=== PATIENT | male | born 1975 | race African-American/Black ===

== ENCOUNTER 2020-07-30 22:15 | Inpatient (IN) | payer BC, SELFPAY ==
[2020-07-30 22:54] LABS: #Eosinphils 0.1 thou/uL (0.0-0.7); #Monocytes 0.5 thou/uL (0.11-0.59); #Neutrophils 4.5 thou/uL (1.40-6.50); %Basophils 0.4 % (0.0-1.0); %Lymphocytes 37.3 % (21.0-51.0); %Monocytes 5.5 % (0.0-10.0); %Neutrophils 55.8 % (42.0-75.0); Mean Corpuscular HGB CONC 32.6 g/dL (32.0-36.0); Mean Corpuscular Hemoglobin 28.6 pg (27.0-31.0); Mean Corpuscular Volume 87.9 fL (78.0-98.0); Mean Platelet Volume 8.1 fL (7.4-10.4); Platelet Count 286 thou/uL (130-400); RBC Distribution Width 11.7 % (11.5-14.5); Red Blood Cell (RBC) Count 4.89 mill/uL (4.70-6.10); White Blood Cell (WBC) Count 8.1 thou/uL (4.8-10.8)
[2020-07-30 23:12] LABS: ALT (SGPT) 170 U/L (8-55); AST (SGOT) 93 U/L (5-34); Albumin 3.9 g/dL (3.5-5.0); Alkaline Phosphatase 175 U/L (40-110); Anion Gap 14 mmol/L (10-20); BUN (Urea Nitrogen) 23 mg/dL (8.9-20.6); Bilirubin, Total 0.9 mg/dL (0.2-1.2); CK (CPK) 129 U/L (30-200); Calc. Creatinine Clearance 0 mL/min (70-130); Calcium 8.7 mg/dL (7.8-10.44); Carbon Dioxide 20 mmol/L (22-29); Chloride 105 mmol/L (98-107); Glucose 350 mg/dL (70-105); Lipase 10 U/L (8-78); Potassium 3.4 mmol/L (3.5-5.1); Protein, Total 5.9 g/dL (6.0-8.3); Sodium 136 mmol/L (136-145)
[2020-07-31] MEDS ORDERED: Aspirin Chewable 81 MG TAB ONE (00:26)
[2020-07-31] MEDS ORDERED: Furosemide 40 MG/4 ML VIAL ONE (00:26)
[2020-07-31] MEDS ORDERED: Ondansetron ODT 4 MG TAB SL PRN (02:00)
[2020-07-31] MEDS ORDERED: Ondansetron PF 4 MG/2 ML Vial IVP PRN (02:00)
[2020-07-31 02:31] LABS: Troponin I 0.031 ng/mL (< 0.028)
[2020-07-31] MEDS ORDERED: Dextrose 50% Abboject 50 ML SYRINGE SLOW IVP PRN (05:17)
[2020-07-31] MEDS ORDERED: Dextrose 5% in Water 1,000 ML IV PRN (05:17)
[2020-07-31 05:28] LABS: Troponin I 0.021 ng/mL (< 0.028)
[2020-07-31] MEDS ORDERED: Potassium Chloride 20 MEQ TAB PO SCH (05:30)
[2020-07-31] MEDS: HumaLOG 300 UNITS/3 ML VIAL SC PRN ×2 (06:18→21:13)
[2020-07-31 06:53] LABS: #Basophils 0.1 thou/uL (0.0-0.2); #Eosinphils 0.1 thou/uL (0.0-0.7); #Lymphocytes 2.4 thou/uL (1.20-3.40); #Monocytes 0.5 thou/uL (0.11-0.59); #Neutrophils 4.3 thou/uL (1.40-6.50); %Basophils 0.7 % (0.0-1.0); %Eosinophils 1.1 % (0.0-10.0); %Lymphocytes 33.2 % (21.0-51.0); %Monocytes 6.6 % (0.0-10.0); %Neutrophils 58.5 % (42.0-75.0); Hemoglobin 13.5 g/dL (14.0-18.0); Mean Corpuscular HGB CONC 32.6 g/dL (32.0-36.0); Mean Corpuscular Hemoglobin 28.5 pg (27.0-31.0); Mean Corpuscular Volume 87.5 fL (78.0-98.0); Mean Platelet Volume 8.1 fL (7.4-10.4); Platelet Count 252 thou/uL (130-400); RBC Distribution Width 11.6 % (11.5-14.5); Red Blood Cell (RBC) Count 4.73 mill/uL (4.70-6.10); White Blood Cell (WBC) Count 7.3 thou/uL (4.8-10.8)
[2020-07-31 07:12] LABS: Anion Gap 14 mmol/L (10-20); BUN (Urea Nitrogen) 19 mg/dL (8.9-20.6); Calc. Creatinine Clearance 98 mL/min (70-130); Calcium 8.5 mg/dL (7.8-10.44); Carbon Dioxide 22 mmol/L (22-29); Chloride 106 mmol/L (98-107); Glucose 401 mg/dL (70-105); Magnesium 1.7 mg/dL (1.6-2.6); Potassium 3.6 mmol/L (3.5-5.1); Sodium 138 mmol/L (136-145)
[2020-07-31] MEDS: Aspirin 325 MG TAB PO SCH (08:35)
[2020-07-31] MEDS: Furosemide 40 MG/4 ML VIAL SLOW IVP SCH ×2 (08:35→08:45)
[2020-07-31] MEDS ORDERED: Furosemide 20 MG/2 ML VIAL SLOW IVP SCH ×3 (09:00→14:00)
[2020-07-31] MEDS ORDERED: Acetaminophen 325 MG TAB PO PRN (09:05)
[2020-07-31 10:03] LABS: Hemoglobin A1c 12.4 % (4.0-6.0)
[2020-07-31] MEDS: Famotidine 20 MG TAB PO SCH (21:12)
[2020-07-31] MEDS: DOBUTamine 500 mg/250 ml 250 ML IVPB SCH (21:13)
[2020-08-01 04:33] LABS: #Basophils 0.1 thou/uL (0.0-0.2); #Eosinphils 0.1 thou/uL (0.0-0.7); #Lymphocytes 2.8 thou/uL (1.20-3.40); #Monocytes 0.5 thou/uL (0.11-0.59); #Neutrophils 3.9 thou/uL (1.40-6.50); %Basophils 0.7 % (0.0-1.0); %Eosinophils 1.2 % (0.0-10.0); %Lymphocytes 38.1 % (21.0-51.0); %Monocytes 6.4 % (0.0-10.0); %Neutrophils 53.6 % (42.0-75.0); Hemoglobin 13.1 g/dL (14.0-18.0); Mean Corpuscular HGB CONC 33.6 g/dL (32.0-36.0); Mean Corpuscular Hemoglobin 29.4 pg (27.0-31.0); Mean Corpuscular Volume 87.7 fL (78.0-98.0); Platelet Count 243 thou/uL (130-400); RBC Distribution Width 11.6 % (11.5-14.5); Red Blood Cell (RBC) Count 4.45 mill/uL (4.70-6.10); White Blood Cell (WBC) Count 7.3 thou/uL (4.8-10.8)
[2020-08-01 04:51] LABS: Anion Gap 11 mmol/L (10-20); BUN (Urea Nitrogen) 17 mg/dL (8.9-20.6); Calc. Creatinine Clearance 116 mL/min (70-130); Calcium 8.5 mg/dL (7.8-10.44); Carbon Dioxide 24 mmol/L (22-29); Chloride 107 mmol/L (98-107); Glucose 217 mg/dL (70-105); Magnesium 1.7 mg/dL (1.6-2.6); Potassium 3.3 mmol/L (3.5-5.1); Sodium 139 mmol/L (136-145)
[2020-08-01] MEDS: Furosemide 20 MG/2 ML VIAL SLOW IVP SCH ×2 (06:25→16:03)
[2020-08-01] MEDS ORDERED: Potassium Chloride 20 MEQ TAB PO SCH (08:15)
[2020-08-01] MEDS: Aspirin 325 MG TAB PO SCH (08:55)
[2020-08-01] MEDS: Famotidine 20 MG TAB PO SCH ×2 (08:55→20:33)
[2020-08-01] MEDS: Enoxaparin Sodium 40 MG/0.4 ML SYRINGE SC SCH (08:56)
[2020-08-01] MEDS ORDERED: Empagliflozin 10 MG TAB PO SCH (09:45)
[2020-08-01] MEDS: HumaLOG 300 UNITS/3 ML VIAL SC PRN ×2 (11:18→20:57)
[2020-08-01] MEDS: DOBUTamine 500 mg/250 ml 250 ML IVPB SCH (17:49)
[2020-08-02 05:04] LABS: #Basophils 0.1 thou/uL (0.0-0.2); #Eosinphils 0.1 thou/uL (0.0-0.7); #Lymphocytes 2.9 thou/uL (1.20-3.40); #Monocytes 0.5 thou/uL (0.11-0.59); #Neutrophils 5.9 thou/uL (1.40-6.50); %Basophils 0.7 % (0.0-1.0); %Eosinophils 1.4 % (0.0-10.0); %Monocytes 5.6 % (0.0-10.0); %Neutrophils 62.3 % (42.0-75.0); Hemoglobin 13.2 g/dL (14.0-18.0); Mean Corpuscular HGB CONC 33.3 g/dL (32.0-36.0); Mean Corpuscular Hemoglobin 29.4 pg (27.0-31.0); Mean Corpuscular Volume 88.2 fL (78.0-98.0); Mean Platelet Volume 8.1 fL (7.4-10.4); Platelet Count 253 thou/uL (130-400); RBC Distribution Width 11.5 % (11.5-14.5); Red Blood Cell (RBC) Count 4.48 mill/uL (4.70-6.10); White Blood Cell (WBC) Count 9.5 thou/uL (4.8-10.8)
[2020-08-02] MEDS: Furosemide 20 MG/2 ML VIAL SLOW IVP SCH ×2 (05:11→15:24)
[2020-08-02] MEDS: Enoxaparin Sodium 40 MG/0.4 ML SYRINGE SC SCH ×2 (05:12→11:57)
[2020-08-02 05:19] LABS: Anion Gap 11 mmol/L (10-20); BUN (Urea Nitrogen) 17 mg/dL (8.9-20.6); Calc. Creatinine Clearance 86 mL/min (70-130); Calcium 8.9 mg/dL (7.8-10.44); Carbon Dioxide 31 mmol/L (22-29); Chloride 104 mmol/L (98-107); Glucose 192 mg/dL (70-105); Magnesium 1.7 mg/dL (1.6-2.6); Potassium 3.5 mmol/L (3.5-5.1); Sodium 142 mmol/L (136-145)
[2020-08-02] MEDS: Famotidine 20 MG TAB PO SCH ×2 (05:36→20:52)
[2020-08-02] MEDS: Aspirin 325 MG TAB PO SCH (06:34)
[2020-08-02] MEDS ORDERED: Empagliflozin 10 MG TAB PO SCH ×2 (09:00→18:17)
[2020-08-02] MEDS ORDERED: Nitroglycerin 100MG/250ML BOT 0 ML ONE (10:36)
[2020-08-02] MEDS ORDERED: Verapamil 5 MG/2 ML VIAL ONE (10:36)
[2020-08-02] MEDS ORDERED: Heparin 10,000 UNITS/ 10 ML VIAL ONE (10:36)
[2020-08-02] MEDS ORDERED: Lidocaine 1% (PF) 30 ML VIAL ONE (10:36)
[2020-08-02] MEDS ORDERED: Midazolam HCl 2 mg/2 ml Vial ONE (10:54)
[2020-08-02] MEDS ORDERED: Fentanyl 100 MCG/2 ML VIAL ONE (10:54)
[2020-08-02] MEDS ORDERED: Acetaminophen/Codeine 30-300mg Tablet PO PRN (11:19)
[2020-08-02] MEDS ORDERED: Sodium Chloride 0.9% 200 ML IV PRN (11:19)
[2020-08-02] MEDS ORDERED: Sodium Chloride 0.9% 250 ML IV SCH (11:30)
[2020-08-02] MEDS ORDERED: Iopamidol 370 76% 100 ML VIAL ONE (12:41)
[2020-08-02] MEDS: DOBUTamine 500 mg/250 ml 250 ML IVPB SCH (17:14)
[2020-08-02] MEDS: HumaLOG 300 UNITS/3 ML VIAL SC PRN (17:34)
[2020-08-02] MEDS ORDERED: DOBUTamine 500 mg/250 ml 250 ML IVPB SCH (18:04)
[2020-08-03] MEDS: Furosemide 20 MG/2 ML VIAL SLOW IVP SCH ×2 (05:23→14:47)
[2020-08-03 05:31] LABS: #Basophils 0.1 thou/uL (0.0-0.2); #Eosinphils 0.1 thou/uL (0.0-0.7); #Lymphocytes 2.5 thou/uL (1.20-3.40); #Monocytes 0.6 thou/uL (0.11-0.59); #Neutrophils 4.9 thou/uL (1.40-6.50); %Basophils 0.7 % (0.0-1.0); %Eosinophils 1.7 % (0.0-10.0); %Lymphocytes 30.4 % (21.0-51.0); %Monocytes 6.9 % (0.0-10.0); %Neutrophils 60.4 % (42.0-75.0); Hemoglobin 13.2 g/dL (14.0-18.0); Mean Corpuscular HGB CONC 32.2 g/dL (32.0-36.0); Mean Corpuscular Hemoglobin 28.6 pg (27.0-31.0); Mean Corpuscular Volume 88.8 fL (78.0-98.0); Mean Platelet Volume 7.7 fL (7.4-10.4); Platelet Count 254 thou/uL (130-400); RBC Distribution Width 11.5 % (11.5-14.5); Red Blood Cell (RBC) Count 4.61 mill/uL (4.70-6.10); White Blood Cell (WBC) Count 8.1 thou/uL (4.8-10.8)
[2020-08-03 05:53] LABS: Anion Gap 15 mmol/L (10-20); BUN (Urea Nitrogen) 15 mg/dL (8.9-20.6); Calc. Creatinine Clearance 106 mL/min (70-130); Calcium 8.8 mg/dL (7.8-10.44); Carbon Dioxide 25 mmol/L (22-29); Chloride 101 mmol/L (98-107); Glucose 183 mg/dL (70-105); Magnesium 1.8 mg/dL (1.6-2.6); Potassium 3.4 mmol/L (3.5-5.1); Sodium 138 mmol/L (136-145)
[2020-08-03] MEDS: HumaLOG 300 UNITS/3 ML VIAL SC PRN ×3 (06:11→18:37)
[2020-08-03] MEDS: Empagliflozin 25 MG TAB PO SCH (09:09)
[2020-08-03] MEDS: Famotidine 20 MG TAB PO SCH ×2 (09:09→20:39)
[2020-08-03] MEDS: Enoxaparin Sodium 40 MG/0.4 ML SYRINGE SC SCH (09:09)
[2020-08-03 15:41] LABS: Amphetamine Not Detected (NotDetected); Barbiturates Screen Not Detected (NotDetected); Benzodiazepine Screen Not Detected (NotDetected); Cocaine Metabolite Screen Not Detected (NotDetected); Medtox Control Line Valid? VALID (VALID); Medtox Reader # READER 1; Methadone Not Detected (NotDetected); Methamphetamine Not Detected (NotDetected); Opiate Screen Not Detected (NotDetected); Oxycodone Screen Not Detected (NotDetected); Phencyclidine (PCP) Not Detected (NotDetected); THC/Cannabinoid Screen Not Detected (NotDetected); Tricyclic Screen Not Detected (NotDetected)
[2020-08-03] MEDS ORDERED: Potassium Chloride 20 MEQ TAB PO SCH (16:15)
[2020-08-03] MEDS: DOBUTamine 500 mg/250 ml 250 ML IVPB SCH (23:34)
[2020-08-04] MEDS: HumaLOG 300 UNITS/3 ML VIAL SC PRN ×4 (06:07→21:23)
[2020-08-04] MEDS: Furosemide 20 MG/2 ML VIAL SLOW IVP SCH ×2 (06:08→14:24)
[2020-08-04 06:18] LABS: Anion Gap 15 mmol/L (10-20); BUN (Urea Nitrogen) 19 mg/dL (8.9-20.6); Calc. Creatinine Clearance 82 mL/min (70-130); Carbon Dioxide 28 mmol/L (22-29); Chloride 102 mmol/L (98-107); Glucose 268 mg/dL (70-105); Magnesium 2.2 mg/dL (1.6-2.6); Potassium 3.9 mmol/L (3.5-5.1); Sodium 141 mmol/L (136-145)
[2020-08-04] MEDS: metFORMIN XR 500 MG TAB PO SCH (08:44)
[2020-08-04] MEDS: Famotidine 20 MG TAB PO SCH ×2 (08:44→21:21)
[2020-08-04] MEDS: Enoxaparin Sodium 40 MG/0.4 ML SYRINGE SC SCH (08:44)
[2020-08-04] MEDS: Senokot S 8.6-50 MG TAB PO SCH ×2 (08:45→21:21)
[2020-08-04] MEDS: Empagliflozin 25 MG TAB PO SCH (08:49)
[2020-08-04] MEDS: DOBUTamine 500 mg/250 ml 250 ML IVPB SCH (17:07)
[2020-08-05 05:21] LABS: Anion Gap 14 mmol/L (10-20); BUN (Urea Nitrogen) 22 mg/dL (8.9-20.6); Calc. Creatinine Clearance 74 mL/min (70-130); Calcium 8.9 mg/dL (7.8-10.44); Carbon Dioxide 28 mmol/L (22-29); Chloride 102 mmol/L (98-107); Glucose 263 mg/dL (70-105); Magnesium 2.3 mg/dL (1.6-2.6); Sodium 140 mmol/L (136-145)
[2020-08-05] MEDS: HumaLOG 300 UNITS/3 ML VIAL SC PRN ×3 (05:55→17:51)
[2020-08-05] MEDS: Furosemide 20 MG/2 ML VIAL SLOW IVP SCH ×2 (05:55→14:33)
[2020-08-05] MEDS: DOBUTamine 500 mg/250 ml 250 ML IVPB SCH ×2 (05:56→21:35)
[2020-08-05] MEDS: Empagliflozin 25 MG TAB PO SCH (08:31)
[2020-08-05] MEDS: Senokot S 8.6-50 MG TAB PO SCH ×2 (08:31→21:36)
[2020-08-05] MEDS: Enoxaparin Sodium 40 MG/0.4 ML SYRINGE SC SCH (08:31)
[2020-08-05] MEDS: Famotidine 20 MG TAB PO SCH ×2 (08:31→21:36)
[2020-08-05] MEDS: metFORMIN XR 500 MG TAB PO SCH (08:31)
[2020-08-06 05:38] LABS: Anion Gap 16 mmol/L (10-20); BUN (Urea Nitrogen) 23 mg/dL (8.9-20.6); Calc. Creatinine Clearance 77 mL/min (70-130); Calcium 9.4 mg/dL (7.8-10.44); Carbon Dioxide 25 mmol/L (22-29); Chloride 99 mmol/L (98-107); Glucose 159 mg/dL (70-105); Magnesium 2.2 mg/dL (1.6-2.6); Sodium 136 mmol/L (136-145)
[2020-08-06] MEDS: Furosemide 20 MG/2 ML VIAL SLOW IVP SCH (06:15)
[2020-08-06] MEDS: HumaLOG 300 UNITS/3 ML VIAL SC PRN ×3 (06:23→16:48)
[2020-08-06] MEDS: Famotidine 20 MG TAB PO SCH ×2 (08:02→20:24)
[2020-08-06] MEDS: Enoxaparin Sodium 40 MG/0.4 ML SYRINGE SC SCH (08:03)
[2020-08-06] MEDS: metFORMIN XR 500 MG TAB PO SCH (08:03)
[2020-08-06] MEDS: Empagliflozin 25 MG TAB PO SCH (08:05)
[2020-08-06] MEDS: Senokot S 8.6-50 MG TAB PO SCH ×2 (08:05→20:24)
[2020-08-06] MEDS ORDERED: DOBUTamine 500 mg/250 ml 250 ML IVPB SCH (08:28)
[2020-08-06] MEDS: Furosemide 20 MG TAB PO SCH (09:33)
[2020-08-07] MEDS: HumaLOG 300 UNITS/3 ML VIAL SC PRN ×3 (06:13→17:40)
[2020-08-07] MEDS: Furosemide 20 MG TAB PO SCH (08:08)
[2020-08-07] MEDS: Senokot S 8.6-50 MG TAB PO SCH ×2 (08:09→19:52)
[2020-08-07] MEDS: Famotidine 20 MG TAB PO SCH ×2 (08:10→19:52)
[2020-08-07] MEDS: metFORMIN XR 500 MG TAB PO SCH (08:10)
[2020-08-07] MEDS: Empagliflozin 25 MG TAB PO SCH (08:10)
[2020-08-07] MEDS: Enoxaparin Sodium 40 MG/0.4 ML SYRINGE SC SCH (08:10)
[2020-08-08] MEDS: DOBUTamine 500 mg/250 ml 250 ML IVPB SCH (00:21)
[2020-08-08] MEDS: HumaLOG 300 UNITS/3 ML VIAL SC PRN ×4 (06:13→20:50)
[2020-08-08] MEDS: Senokot S 8.6-50 MG TAB PO SCH ×2 (08:47→20:46)
[2020-08-08] MEDS: Famotidine 20 MG TAB PO SCH ×2 (08:47→20:46)
[2020-08-08] MEDS: Enoxaparin Sodium 40 MG/0.4 ML SYRINGE SC SCH (08:47)
[2020-08-08] MEDS: metFORMIN XR 500 MG TAB PO SCH ×2 (08:47→20:46)
[2020-08-08] MEDS: Furosemide 20 MG TAB PO SCH (08:47)
[2020-08-08] MEDS: Empagliflozin 25 MG TAB PO SCH (08:48)
[2020-08-08] MEDS ORDERED: Furosemide 20 MG/2 ML VIAL SLOW IVP SCH (09:45)
[2020-08-08] MEDS ORDERED: Sodium Chloride 0.9% 250 ML IV SCH (11:15)
[2020-08-08 15:03] LABS: Anion Gap 15 mmol/L (10-20); BUN (Urea Nitrogen) 23 mg/dL (8.9-20.6); Calc. Creatinine Clearance 75 mL/min (70-130); Calcium 9.5 mg/dL (7.8-10.44); Carbon Dioxide 22 mmol/L (22-29); Chloride 102 mmol/L (98-107); Glucose 171 mg/dL (70-105); Potassium 4.2 mmol/L (3.5-5.1); Sodium 135 mmol/L (136-145)
[2020-08-09] MEDS: DOBUTamine 500 mg/250 ml 250 ML IVPB SCH (01:34)
[2020-08-09 04:46] LABS: Anion Gap 15 mmol/L (10-20); BUN (Urea Nitrogen) 24 mg/dL (8.9-20.6); Calc. Creatinine Clearance 82 mL/min (70-130); Carbon Dioxide 24 mmol/L (22-29); Chloride 103 mmol/L (98-107); Glucose 164 mg/dL (70-105); Sodium 138 mmol/L (136-145)
[2020-08-09] MEDS: HumaLOG 300 UNITS/3 ML VIAL SC PRN ×4 (06:00→20:58)
[2020-08-09] MEDS: Empagliflozin 25 MG TAB PO SCH (09:41)
[2020-08-09] MEDS: Senokot S 8.6-50 MG TAB PO SCH ×2 (09:41→20:58)
[2020-08-09] MEDS: Furosemide 20 MG TAB PO SCH (09:41)
[2020-08-09] MEDS: Famotidine 20 MG TAB PO SCH ×2 (09:42→20:58)
[2020-08-09] MEDS: Enoxaparin Sodium 40 MG/0.4 ML SYRINGE SC SCH (09:42)
[2020-08-09] MEDS: metFORMIN XR 500 MG TAB PO SCH ×2 (09:42→20:58)
[2020-08-10 04:45] LABS: Anion Gap 14 mmol/L (10-20); BUN (Urea Nitrogen) 29 mg/dL (8.9-20.6); Calc. Creatinine Clearance 77 mL/min (70-130); Calcium 9.1 mg/dL (7.8-10.44); Carbon Dioxide 22 mmol/L (22-29); Chloride 104 mmol/L (98-107); Glucose 198 mg/dL (70-105); Magnesium 2.3 mg/dL (1.6-2.6); Potassium 3.9 mmol/L (3.5-5.1); Sodium 136 mmol/L (136-145)
[2020-08-10] MEDS: HumaLOG 300 UNITS/3 ML VIAL SC PRN ×2 (06:02→16:38)
[2020-08-10] MEDS: metFORMIN XR 500 MG TAB PO SCH ×2 (09:01→21:54)
[2020-08-10] MEDS: Empagliflozin 25 MG TAB PO SCH (09:01)
[2020-08-10] MEDS: Enoxaparin Sodium 40 MG/0.4 ML SYRINGE SC SCH (09:02)
[2020-08-10] MEDS: Famotidine 20 MG TAB PO SCH ×2 (09:02→21:54)
[2020-08-10] MEDS: Senokot S 8.6-50 MG TAB PO SCH ×2 (09:02→21:54)
[2020-08-10] MEDS: Furosemide 20 MG TAB PO SCH (09:10)
[2020-08-11 04:58] LABS: ALT (SGPT) 23 U/L (8-55); AST (SGOT) 14 U/L (5-34); Albumin 3.7 g/dL (3.5-5.0); Alkaline Phosphatase 140 U/L (40-110); Anion Gap 16 mmol/L (10-20); BUN (Urea Nitrogen) 26 mg/dL (8.9-20.6); Bilirubin, Total 0.8 mg/dL (0.2-1.2); Calc. Creatinine Clearance 74 mL/min (70-130); Calcium 9.4 mg/dL (7.8-10.44); Carbon Dioxide 19 mmol/L (22-29); Chloride 105 mmol/L (98-107); Globulin 2.6 g/dL (2.4-3.5); Glucose 211 mg/dL (70-105); Magnesium 2.1 mg/dL (1.6-2.6); Protein, Total 6.3 g/dL (6.0-8.3); Sodium 136 mmol/L (136-145)
[2020-08-11] MEDS: HumaLOG 300 UNITS/3 ML VIAL SC PRN ×3 (06:41→20:52)
[2020-08-11] MEDS: Furosemide 20 MG TAB PO SCH (09:32)
[2020-08-11] MEDS: Empagliflozin 25 MG TAB PO SCH (09:32)
[2020-08-11] MEDS: metFORMIN XR 500 MG TAB PO SCH ×2 (09:32→21:24)
[2020-08-11] MEDS: Famotidine 20 MG TAB PO SCH ×2 (09:32→20:51)
[2020-08-11] MEDS: Senokot S 8.6-50 MG TAB PO SCH ×2 (09:33→20:51)
[2020-08-11] MEDS: Enoxaparin Sodium 40 MG/0.4 ML SYRINGE SC SCH (09:33)
[2020-08-12] MEDS: HumaLOG 300 UNITS/3 ML VIAL SC PRN ×4 (06:21→20:37)
[2020-08-12] MEDS: Senokot S 8.6-50 MG TAB PO SCH ×2 (09:45→20:36)
[2020-08-12] MEDS: Enoxaparin Sodium 40 MG/0.4 ML SYRINGE SC SCH (09:46)
[2020-08-12] MEDS: Furosemide 20 MG TAB PO SCH (09:46)
[2020-08-12] MEDS: Famotidine 20 MG TAB PO SCH ×2 (09:46→20:36)
[2020-08-12] MEDS: metFORMIN XR 500 MG TAB PO SCH ×2 (09:46→20:36)
[2020-08-12] MEDS: Empagliflozin 25 MG TAB PO SCH (09:47)
[2020-08-12] MEDS ORDERED: Furosemide 40 MG/4 ML VIAL SLOW IVP SCH (18:15)
[2020-08-13] MEDS: HumaLOG 300 UNITS/3 ML VIAL SC PRN ×2 (06:12→17:24)
[2020-08-13] MEDS: Enoxaparin Sodium 40 MG/0.4 ML SYRINGE SC SCH (08:43)
[2020-08-13] MEDS: Valsartan 80 MG TAB PO SCH (08:43)
[2020-08-13] MEDS: Furosemide 40 MG/4 ML VIAL SLOW IVP SCH (08:44)
[2020-08-13] MEDS: Senokot S 8.6-50 MG TAB PO SCH ×2 (08:44→21:16)
[2020-08-13] MEDS: Empagliflozin 25 MG TAB PO SCH (08:44)
[2020-08-13] MEDS: metFORMIN XR 500 MG TAB PO SCH ×2 (08:44→21:16)
[2020-08-13] MEDS: Famotidine 20 MG TAB PO SCH ×2 (08:44→21:16)
[2020-08-14] MEDS: Furosemide 40 MG/4 ML VIAL SLOW IVP SCH (08:22)
[2020-08-14] MEDS: Valsartan 80 MG TAB PO SCH (08:22)
[2020-08-14] MEDS: metFORMIN XR 500 MG TAB PO SCH ×2 (08:22→21:41)
[2020-08-14] MEDS: Empagliflozin 25 MG TAB PO SCH (08:22)
[2020-08-14] MEDS: Enoxaparin Sodium 40 MG/0.4 ML SYRINGE SC SCH (08:22)
[2020-08-14] MEDS: Senokot S 8.6-50 MG TAB PO SCH ×2 (08:23→21:41)
[2020-08-14] MEDS: Famotidine 20 MG TAB PO SCH ×2 (08:23→21:41)
[2020-08-14] MEDS ORDERED: Spironolactone 25 MG TAB PO SCH ×2 (09:03→09:15)
[2020-08-14] MEDS: Digoxin 0.5 MG/2 ML AMP SLOW IVP SCH ×2 (09:54→13:50)
[2020-08-14] MEDS: HumaLOG 300 UNITS/3 ML VIAL SC PRN (11:30)
[2020-08-14] MEDS ORDERED: Digoxin 0.25 MG TAB PO SCH (14:00)
[2020-08-15] MEDS: Spironolactone 25 MG TAB PO SCH (08:42)
[2020-08-15] MEDS: Valsartan 80 MG TAB PO SCH (08:42)
[2020-08-15] MEDS: Furosemide 40 MG/4 ML VIAL SLOW IVP SCH (08:42)
[2020-08-15] MEDS: Digoxin 0.25 MG TAB PO SCH (08:43)
[2020-08-15] MEDS: Empagliflozin 25 MG TAB PO SCH (08:43)
[2020-08-15] MEDS: metFORMIN XR 500 MG TAB PO SCH ×2 (08:43→20:27)
[2020-08-15] MEDS: Enoxaparin Sodium 40 MG/0.4 ML SYRINGE SC SCH (08:43)
[2020-08-15] MEDS: Famotidine 20 MG TAB PO SCH ×2 (08:43→20:27)
[2020-08-15] MEDS: Senokot S 8.6-50 MG TAB PO SCH ×2 (08:43→20:28)
[2020-08-15] MEDS ORDERED: Carvedilol 3.125 MG TAB PO SCH (09:15)
[2020-08-15] MEDS: HumaLOG 300 UNITS/3 ML VIAL SC PRN ×2 (11:53→20:52)
[2020-08-15 13:30] LABS: #Basophils 0.1 thou/uL (0.0-0.2); #Eosinphils 0.2 thou/uL (0.0-0.7); #Lymphocytes 2.3 thou/uL (1.20-3.40); #Monocytes 0.5 thou/uL (0.11-0.59); #Neutrophils 6.9 thou/uL (1.40-6.50); %Basophils 0.5 % (0.0-1.0); %Eosinophils 2.5 % (0.0-10.0); %Lymphocytes 22.6 % (21.0-51.0); %Monocytes 5.5 % (0.0-10.0); %Neutrophils 68.9 % (42.0-75.0); Hemoglobin 15.2 g/dL (14.0-18.0); Mean Corpuscular HGB CONC 33.8 g/dL (32.0-36.0); Mean Corpuscular Hemoglobin 29.2 pg (27.0-31.0); Mean Corpuscular Volume 86.5 fL (78.0-98.0); Mean Platelet Volume 7.3 fL (7.4-10.4); Platelet Count 438 thou/uL (130-400); RBC Distribution Width 11.2 % (11.5-14.5); Red Blood Cell (RBC) Count 5.19 mill/uL (4.70-6.10)
[2020-08-15 13:50] LABS: Anion Gap 15 mmol/L (10-20); BUN (Urea Nitrogen) 19 mg/dL (8.9-20.6); Calc. Creatinine Clearance 76 mL/min (70-130); Calcium 9.2 mg/dL (7.8-10.44); Carbon Dioxide 23 mmol/L (22-29); Chloride 104 mmol/L (98-107); Glucose 148 mg/dL (70-105); Potassium 4.1 mmol/L (3.5-5.1); Sodium 138 mmol/L (136-145)
[2020-08-15] MEDS: Carvedilol 3.125 MG TAB PO SCH (16:38)
[2020-08-16 05:34] LABS: Anion Gap 13 mmol/L (10-20); BUN (Urea Nitrogen) 24 mg/dL (8.9-20.6); Calc. Creatinine Clearance 80 mL/min (70-130); Calcium 9.1 mg/dL (7.8-10.44); Carbon Dioxide 25 mmol/L (22-29); Chloride 105 mmol/L (98-107); Glucose 196 mg/dL (70-105); Potassium 3.5 mmol/L (3.5-5.1); Sodium 139 mmol/L (136-145)
[2020-08-16] MEDS: Enoxaparin Sodium 40 MG/0.4 ML SYRINGE SC SCH (09:23)
[2020-08-16] MEDS: Senokot S 8.6-50 MG TAB PO SCH ×2 (09:23→20:06)
[2020-08-16] MEDS: Valsartan 80 MG TAB PO SCH (09:23)
[2020-08-16] MEDS: Spironolactone 25 MG TAB PO SCH (09:24)
[2020-08-16] MEDS: Famotidine 20 MG TAB PO SCH ×2 (09:24→20:05)
[2020-08-16] MEDS: metFORMIN XR 500 MG TAB PO SCH ×2 (09:24→20:05)
[2020-08-16] MEDS: Carvedilol 3.125 MG TAB PO SCH ×2 (09:24→16:41)
[2020-08-16] MEDS: Empagliflozin 25 MG TAB PO SCH (09:24)
[2020-08-16] MEDS: Digoxin 0.25 MG TAB PO SCH (09:24)
[2020-08-16] MEDS: HumaLOG 300 UNITS/3 ML VIAL SC PRN ×2 (12:28→18:09)
[2020-08-16] MEDS ORDERED: Valsartan 80 MG TAB PO SCH (21:00)
[2020-08-17] MEDS: HumaLOG 300 UNITS/3 ML VIAL SC PRN ×3 (05:46→16:56)
[2020-08-17] MEDS: metFORMIN XR 500 MG TAB PO SCH ×2 (08:23→21:05)
[2020-08-17] MEDS: Senokot S 8.6-50 MG TAB PO SCH ×2 (08:23→21:05)
[2020-08-17] MEDS: Famotidine 20 MG TAB PO SCH ×2 (08:23→21:05)
[2020-08-17] MEDS: Spironolactone 25 MG TAB PO SCH (08:23)
[2020-08-17] MEDS: Carvedilol 3.125 MG TAB PO SCH ×2 (08:23→16:44)
[2020-08-17] MEDS: Digoxin 0.25 MG TAB PO SCH (08:23)
[2020-08-17] MEDS: Enoxaparin Sodium 40 MG/0.4 ML SYRINGE SC SCH (08:24)
[2020-08-17] MEDS: Empagliflozin 25 MG TAB PO SCH (08:28)
[2020-08-18] MEDS: HumaLOG 300 UNITS/3 ML VIAL SC PRN ×2 (05:43→14:18)
[2020-08-18] MEDS: Enoxaparin Sodium 40 MG/0.4 ML SYRINGE SC SCH (09:03)
[2020-08-18] MEDS: Digoxin 0.25 MG TAB PO SCH (09:04)
[2020-08-18] MEDS: Famotidine 20 MG TAB PO SCH ×2 (09:04→21:35)
[2020-08-18] MEDS: Empagliflozin 25 MG TAB PO SCH (09:04)
[2020-08-18] MEDS: Carvedilol 3.125 MG TAB PO SCH ×2 (09:04→17:18)
[2020-08-18] MEDS: Furosemide 40 MG TAB PO SCH ×2 (09:04→14:18)
[2020-08-18] MEDS: Spironolactone 25 MG TAB PO SCH (09:04)
[2020-08-18] MEDS: Senokot S 8.6-50 MG TAB PO SCH ×2 (09:04→21:35)
[2020-08-18] MEDS: metFORMIN XR 500 MG TAB PO SCH ×2 (09:05→21:35)
[2020-08-18 12:56] VITALS: BMI 20.6
[2020-08-18 15:39] LABS: CRP (Inflammatory) Less than 0.50 mg/dL (= or < 0.5); Uric Acid 4.8 mg/dL (3.5-7.2)
[2020-08-19] MEDS: HumaLOG 300 UNITS/3 ML VIAL SC PRN ×2 (06:13→11:22)
[2020-08-19] MEDS: metFORMIN XR 500 MG TAB PO SCH ×2 (08:30→20:12)
[2020-08-19] MEDS: Enoxaparin Sodium 40 MG/0.4 ML SYRINGE SC SCH (08:30)
[2020-08-19] MEDS: Famotidine 20 MG TAB PO SCH ×2 (08:30→20:12)
[2020-08-19] MEDS: Senokot S 8.6-50 MG TAB PO SCH ×2 (08:30→20:12)
[2020-08-19] MEDS: Spironolactone 25 MG TAB PO SCH (08:31)
[2020-08-19] MEDS: Carvedilol 3.125 MG TAB PO SCH ×2 (08:31→17:34)
[2020-08-19] MEDS: Empagliflozin 25 MG TAB PO SCH (08:32)
[2020-08-19] MEDS: Digoxin 0.25 MG TAB PO SCH (08:32)
[2020-08-19] MEDS: Furosemide 40 MG TAB PO SCH ×2 (08:32→15:16)
[2020-08-19] MEDS ORDERED: Furosemide 40 MG TAB PO SCH (15:30)
[2020-08-19] MEDS ORDERED: Furosemide 20 MG TAB PO SCH (15:30)
[2020-08-20] MEDS: HumaLOG 300 UNITS/3 ML VIAL SC PRN ×2 (06:08→11:41)
[2020-08-20] MEDS ORDERED: Spironolactone 25 MG TAB PO SCH (08:00)
[2020-08-20] MEDS: Digoxin 0.25 MG TAB PO SCH (08:28)
[2020-08-20] MEDS: Senokot S 8.6-50 MG TAB PO SCH (08:28)
[2020-08-20] MEDS: Carvedilol 3.125 MG TAB PO SCH (08:28)
[2020-08-20] MEDS: Enoxaparin Sodium 40 MG/0.4 ML SYRINGE SC SCH (08:28)
[2020-08-20] MEDS: metFORMIN XR 500 MG TAB PO SCH (08:29)
[2020-08-20] MEDS: Famotidine 20 MG TAB PO SCH (08:29)
[2020-08-20] MEDS: Empagliflozin 25 MG TAB PO SCH (08:29)
[2020-08-20] MEDS ORDERED: Furosemide 20 MG TAB PO SCH (09:00)
[2020-08-20] MEDS: Furosemide 40 MG TAB PO SCH ×2 (10:15→13:24)
[2020-08-20 16:10] VITALS: BP 97/60; TEMP 98.4
== END 2020-08-20 17:36 | disposition home or self-care (01) | DRG 286 ==
LOC: ERS 22:15 → 2NO 07-31 00:26
PROVIDERS: ADMIT Student in an Organized Health Care Education/Training Program; ATTEND Internal Medicine
PROC: B2111ZZ Fluoroscopy of Multiple Coronary Arteries using Low Osmolar Contrast (ICD-10-PCS; principal; 2020-08-02)
DX: I42.0 Dilated cardiomyopathy (principal); I50.23 Acute on chronic systolic (congestive) heart failure; Z20.822 Contact with and (suspected) exposure to COVID-19; E11.65 Type 2 diabetes mellitus with hyperglycemia; R77.8 Other specified abnormalities of plasma proteins; I42.8 Other cardiomyopathies; R00.0 Tachycardia, unspecified; I95.2 Hypotension due to drugs; T44.5X5A Adverse effect of predominantly beta-adrenoreceptor agonists, initial encounter; Z98.890 Other specified postprocedural states
CPT/HCPCS: 36415; 36416; 71045; 71275; 76942; 80048; 80053; 80306; 82550; 83036; 83690; 83735; 83880; 84443; 84484; 84550; 85025; 85379; 85652; 86140; 93005; 93010; 93306; 93454; 93798; 94760; 96374; 99152; 99153; J1160; J1250; J1644; J1650; J1815; J1940; J2001; J2250; J3010; Q9967

== ENCOUNTER 2020-12-22 13:20 | Outpatient (CLI) | payer SELFPAY ==
[2020-12-22 14:58] LABS: Hemoglobin 15.8 g/dL (13.5-17.5); Mean Corpuscular HGB CONC 33.1 g/dL (32.0-36.0); Mean Corpuscular Hemoglobin 29.1 pg (27.0-33.0); Mean Corpuscular Volume 87.8 fl (81.2-95.1); Platelet Count 331 10x3/uL (150-450); RBC Distribution Width 11.7 % (11.5-14.5); Red Blood Cell (RBC) Count 5.43 10x6/uL (4.32-5.72); White Blood Cell (WBC) Count 7.5 10x3/uL (3.5-10.5)
[2020-12-22 15:45] LABS: INR-International Normal Ratio 1.5; PTT 34.5 sec (22.0-33.0); Prothrombin Time 16.1 sec (9.5-12.1)
[2020-12-22 15:49] LABS: Anion Gap 17 mmol/L (10-20); BUN (Urea Nitrogen) 25 mg/dL (8.9-20.6); Calc. Creatinine Clearance 0 mL/min (70-130); Calcium 10.7 mg/dL (7.8-10.44); Carbon Dioxide 23 mmol/L (22-29); Chloride 103 mmol/L (98-107); Glucose 168 mg/dL (70-105); Potassium 4.4 mmol/L (3.5-5.1); Sodium 139 mmol/L (136-145)
[2020-12-23 12:08] LABS: SARS-CoV-2 PCR by NAA Not Detected (NotDetected)
== END 2020-12-22 13:21 | disposition home or self-care (01) ==
LOC: LABBT 13:20
PROVIDERS: ATTEND Internal Medicine Cardiovascular Disease
DX: Z01.812 Encounter for preprocedural laboratory examination (principal); I51.9 Heart disease, unspecified; Z79.01 Long term (current) use of anticoagulants; Z20.822 Contact with and (suspected) exposure to COVID-19
CPT/HCPCS: 80048; 85027; 85610; 85730; U0003; U0005

== ENCOUNTER 2020-12-27 11:06 | Day surgery (SDC) | payer OTHER ==
[2020-12-23 12:12] VITALS: BMI 19.6
[2020-12-27] MEDS ORDERED: Gentamicin 80 MG/2 ML VIAL ONE ×2 (12:13→14:49)
[2020-12-27] MEDS ORDERED: CEFAZOLIN 1 GM VIAL ONE ×2 (12:13→14:49)
[2020-12-27] MEDS ORDERED: Lidocaine 1% (PF) 30 ML VIAL ONE (12:13)
[2020-12-27] MEDS ORDERED: Fentanyl 100 MCG/2 ML VIAL ONE ×2 (14:10→15:29)
[2020-12-27] MEDS ORDERED: Midazolam HCl 2 mg/2 ml Vial ONE (14:10)
[2020-12-27] MEDS ORDERED: PHENYLEPHRINE-NS 100 MCG/ML 10 ML SYRINGE ONE (14:14)
[2020-12-27] MEDS ORDERED: Lidocaine 1% PF 5 ML VIAL ONE (14:14)
[2020-12-27] MEDS ORDERED: PROPOFOL 20 ML ONE (14:17)
[2020-12-27] MEDS ORDERED: HYDROcodone/Acetaminophen 5/325 mg Tablet ONE (17:55)
[2020-12-27] MEDS ORDERED: Acetaminophen/Codeine 30-300mg Tablet ONE ×2 (17:58→19:12)
== END 2020-12-27 19:30 | disposition home or self-care (01) ==
LOC: SDC 11:06
PROVIDERS: ATTEND Internal Medicine Cardiovascular Disease
PROC: 02HK3KZ Insertion of Defibrillator Lead into Right Ventricle, Percutaneous Approach (ICD-10-PCS; principal; 2020-12-27)
PROC: 0JH608Z Insertion of Defibrillator Generator into Chest Subcutaneous Tissue and Fascia, Open Approach (ICD-10-PCS; principal; 2020-12-27)
DX: I50.22 Chronic systolic (congestive) heart failure (principal); I42.8 Other cardiomyopathies; R00.0 Tachycardia, unspecified; E11.9 Type 2 diabetes mellitus without complications; Z79.84 Long term (current) use of oral hypoglycemic drugs; Z79.899 Other long term (current) drug therapy
CPT/HCPCS: 33249; 71045; 76942; C1777; C1786; J0690; J1580; J2001; J2250; J2704; J3010

== ENCOUNTER 2021-09-15 18:36 | Inpatient (IN) | payer OTHER, SELFPAY ==
[~2021-09-15 18:36] MED LIST: Iopamidol-370 76% 500 ML 1 ML ONE
[2021-09-15 19:13] LABS: #Lymphocytes 2.8 thou/uL (1.20-3.40); #Monocytes 0.4 thou/uL (0.11-0.59); #Neutrophils 6.7 thou/uL (1.40-6.50); %Basophils 0.4 % (0.0-1.0); %Eosinophils 0.5 % (0.0-10.0); %Lymphocytes 28.2 % (21.0-51.0); Hemoglobin 14.2 g/dL (14.0-18.0); Mean Corpuscular Hemoglobin 28.7 pg (27.0-31.0); Mean Platelet Volume 8.7 fL (7.4-10.4); Platelet Count 218 thou/uL (130-400); RBC Distribution Width 13.6 % (11.5-14.5); Red Blood Cell (RBC) Count 4.96 mill/uL (4.70-6.10)
[2021-09-15] MEDS ORDERED: Furosemide 40 MG/4 ML VIAL ONE (19:21)
[2021-09-15 19:36] LABS: ALT (SGPT) 26 U/L (8-55); AST (SGOT) 26 U/L (5-34); Alkaline Phosphatase 166 U/L (40-110); Anion Gap 17 mmol/L (10-20); BUN (Urea Nitrogen) 28 mg/dL (8.9-20.6); Bilirubin, Total 2.6 mg/dL (0.2-1.2); Calc. Creatinine Clearance 0 mL/min (70-130); Calcium 8.8 mg/dL (7.8-10.44); Carbon Dioxide 21 mmol/L (22-29); Chloride 101 mmol/L (98-107); Globulin 2.3 g/dL (2.4-3.5); Glucose 336 mg/dL (70-105); Potassium 3.7 mmol/L (3.5-5.1); Protein, Total 6.3 g/dL (6.0-8.3); Sodium 135 mmol/L (136-145)
[2021-09-16] MEDS ORDERED: Ondansetron PF 4 MG/2 ML Vial IVP PRN (00:01)
[2021-09-16] MEDS ORDERED: Acetaminophen 325 MG TAB PO PRN (00:01)
[2021-09-16] MEDS ORDERED: Dextrose 50% Abboject 50 ML SYRINGE SLOW IVP PRN (00:04)
[2021-09-16] MEDS ORDERED: Dextrose 5% in Water 1,000 ML IV PRN (00:04)
[2021-09-16 02:55] LABS: SARS-CoV-2 NAA Rapid Test Not Detected (NotDetected)
[2021-09-16 03:04] LABS: Troponin I 0.025 ng/mL (< 0.028)
[2021-09-16] MEDS ORDERED: Furosemide 40 MG/4 ML VIAL ONE ×2 (05:34→06:28)
[2021-09-16 05:49] LABS: #Lymphocytes 2.8 thou/uL (1.20-3.40); #Monocytes 0.5 thou/uL (0.11-0.59); #Neutrophils 6.2 thou/uL (1.40-6.50); %Basophils 0.5 % (0.0-1.0); %Eosinophils 0.4 % (0.0-10.0); %Lymphocytes 29.5 % (21.0-51.0); %Monocytes 4.9 % (0.0-10.0); %Neutrophils 64.7 % (42.0-75.0); Mean Corpuscular HGB CONC 31.5 g/dL (32.0-36.0); Mean Corpuscular Hemoglobin 28.7 pg (27.0-31.0); Mean Corpuscular Volume 90.9 fL (78.0-98.0); Mean Platelet Volume 9.3 fL (7.4-10.4); Platelet Count 193 thou/uL (130-400); RBC Distribution Width 13.8 % (11.5-14.5); Red Blood Cell (RBC) Count 5.24 mill/uL (4.70-6.10); White Blood Cell (WBC) Count 9.5 thou/uL (4.8-10.8)
[2021-09-16] MEDS: Furosemide 40 MG/4 ML VIAL SLOW IVP SCH ×2 (05:49→14:23)
[2021-09-16 06:00] LABS: Anion Gap 16 mmol/L (10-20); BUN (Urea Nitrogen) 29 mg/dL (8.9-20.6); Calc. Creatinine Clearance 0 mL/min (70-130); Calcium 8.8 mg/dL (7.8-10.44); Carbon Dioxide 22 mmol/L (22-29); Chloride 99 mmol/L (98-107); Glucose 271 mg/dL (70-105); Potassium 3.4 mmol/L (3.5-5.1); Sodium 134 mmol/L (136-145)
[2021-09-16 06:02] LABS: ALT (SGPT) 36 U/L (8-55); AST (SGOT) 34 U/L (5-34); Alkaline Phosphatase 175 U/L (40-110); Bilirubin, Total 2.2 mg/dL (0.2-1.2); Protein, Total 6.6 g/dL (6.0-8.3)
[2021-09-16] MEDS ORDERED: Ondansetron PF 4 MG/2 ML Vial ONE (06:59)
[2021-09-16 07:09] LABS: Magnesium 1.4 mg/dL (1.6-2.6)
[2021-09-16] MEDS ORDERED: Potassium Chloride 20 MEQ TAB PO SCH (07:15)
[2021-09-16] MEDS ORDERED: Potassium Chloride 20 MEQ TAB ONE (07:32)
[2021-09-16] MEDS ORDERED: HumaLOG 300 UNITS/3 ML VIAL ONE ×2 (07:42→07:43)
[2021-09-16] MEDS: HumaLOG 300 UNITS/3 ML VIAL SC PRN ×2 (07:50→21:16)
[2021-09-16] MEDS ORDERED: Magnesium 2 GM/50 ML(in water) 2 GM in Premix Bag 1 BAG IVPB SCH (08:00)
[2021-09-16] MEDS ORDERED: DOBUTamine 500 mg/250 ml 250 ML IVPB SCH (08:00)
[2021-09-16] MEDS: Heparin 5,000 UNITS/ML VIAL SC SCH ×2 (09:43→21:14)
[2021-09-16] MEDS ORDERED: Electrolyte Replacement Protocol 1 EACH FS PRN (10:30)
[2021-09-16 10:51] VITALS: BMI 24.6
[2021-09-16] MEDS: DOBUTamine 500 mg/250 ml 250 ML IVPB SCH (11:17)
[2021-09-16] MEDS ORDERED: Furosemide 40 MG/4 ML VIAL SLOW IVP SCH (14:15)
[2021-09-16] MEDS: Carvedilol 3.125 MG TAB PO SCH (17:46)
[2021-09-16] MEDS ORDERED: Furosemide 100 MG/10 ML VIAL SLOW IVP SCH (22:00)
[2021-09-17 04:36] LABS: #Eosinphils 0.1 thou/uL (0.0-0.7); #Lymphocytes 2.2 thou/uL (1.20-3.40); #Monocytes 0.5 thou/uL (0.11-0.59); #Neutrophils 4.9 thou/uL (1.40-6.50); %Basophils 0.5 % (0.0-1.0); %Eosinophils 1.1 % (0.0-10.0); %Monocytes 5.9 % (0.0-10.0); %Neutrophils 63.6 % (42.0-75.0); Hemoglobin 13.7 g/dL (14.0-18.0); Mean Corpuscular HGB CONC 32.2 g/dL (32.0-36.0); Mean Corpuscular Hemoglobin 29.3 pg (27.0-31.0); Mean Platelet Volume 10.3 fL (7.4-10.4); Platelet Count 147 thou/uL (130-400); RBC Distribution Width 13.8 % (11.5-14.5); Red Blood Cell (RBC) Count 4.68 mill/uL (4.70-6.10); White Blood Cell (WBC) Count 7.7 thou/uL (4.8-10.8)
[2021-09-17 04:55] LABS: Phosphorus 3.7 mg/dL (2.3-4.7)
[2021-09-17 05:37] LABS: BUN (Urea Nitrogen) 24 mg/dL (8.9-20.6); Calc. Creatinine Clearance 86 mL/min (70-130); Calcium 8.4 mg/dL (7.8-10.44); Carbon Dioxide 19 mmol/L (22-29); Chloride 103 mmol/L (98-107); Glucose 166 mg/dL (70-105); Magnesium 1.5 mg/dL (1.6-2.6); Sodium 136 mmol/L (136-145)
[2021-09-17 05:38] LABS: Anion Gap 18 mmol/L (10-20)
[2021-09-17] MEDS ORDERED: Magnesium 2 GM/50 ML(in water) 2 GM in Premix Bag 1 BAG IVPB SCH (06:00)
[2021-09-17] MEDS: Furosemide 40 MG/4 ML VIAL SLOW IVP SCH ×2 (06:01→14:51)
[2021-09-17] MEDS: HumaLOG 300 UNITS/3 ML VIAL SC PRN ×4 (06:28→20:40)
[2021-09-17] MEDS: DOBUTamine 500 mg/250 ml 250 ML IVPB SCH (07:41)
[2021-09-17] MEDS: Digoxin 0.25 MG TAB PO SCH (10:21)
[2021-09-17] MEDS: Carvedilol 3.125 MG TAB PO SCH (10:22)
[2021-09-17] MEDS: Empagliflozin 10 MG TAB PO SCH (10:22)
[2021-09-17] MEDS: Heparin 5,000 UNITS/ML VIAL SC SCH ×2 (10:23→20:40)
[2021-09-18] MEDS: DOBUTamine 500 mg/250 ml 250 ML IVPB SCH (04:43)
[2021-09-18 05:00] LABS: #Eosinphils 0.2 thou/uL (0.0-0.7); #Lymphocytes 1.3 thou/uL (1.20-3.40); #Monocytes 0.6 thou/uL (0.11-0.59); #Neutrophils 5.9 thou/uL (1.40-6.50); %Basophils 0.2 % (0.0-1.0); %Eosinophils 2.3 % (0.0-10.0); %Lymphocytes 16.6 % (21.0-51.0); %Neutrophils 73.9 % (42.0-75.0); Hemoglobin 13.5 g/dL (14.0-18.0); Mean Corpuscular HGB CONC 32.4 g/dL (32.0-36.0); Mean Corpuscular Hemoglobin 29.5 pg (27.0-31.0); Mean Corpuscular Volume 91.2 fL (78.0-98.0); Mean Platelet Volume 9.1 fL (7.4-10.4); Platelet Count 169 thou/uL (130-400); RBC Distribution Width 13.6 % (11.5-14.5); Red Blood Cell (RBC) Count 4.57 mill/uL (4.70-6.10); White Blood Cell (WBC) Count 7.9 thou/uL (4.8-10.8)
[2021-09-18 05:11] LABS: Anion Gap 10 mmol/L (10-20); BUN (Urea Nitrogen) 20 mg/dL (8.9-20.6); Calc. Creatinine Clearance 0 mL/min (70-130); Calcium 8.3 mg/dL (7.8-10.44); Carbon Dioxide 29 mmol/L (22-29); Chloride 104 mmol/L (98-107); Glucose 250 mg/dL (70-105); Magnesium 1.6 mg/dL (1.6-2.6); Potassium 3.1 mmol/L (3.5-5.1); Sodium 140 mmol/L (136-145)
[2021-09-18] MEDS ORDERED: Magnesium 2 GM/50 ML(in water) 2 GM in Premix Bag 1 BAG IVPB SCH (06:00)
[2021-09-18] MEDS: Furosemide 40 MG/4 ML VIAL SLOW IVP SCH ×2 (06:02→14:03)
[2021-09-18] MEDS: HumaLOG 300 UNITS/3 ML VIAL SC PRN ×3 (06:42→17:00)
[2021-09-18] MEDS ORDERED: Potassium Chloride 20 MEQ TAB PO SCH (08:00)
[2021-09-18] MEDS: Digoxin 0.25 MG TAB PO SCH (09:29)
[2021-09-18] MEDS: Empagliflozin 10 MG TAB PO SCH (09:29)
[2021-09-18] MEDS: Heparin 5,000 UNITS/ML VIAL SC SCH ×2 (09:31→20:02)
[2021-09-18] MEDS ORDERED: glipiZIDE 5 MG TAB PO SCH (13:00)
[2021-09-18] MEDS ORDERED: Phentolamine Mesylate 5 MG VIAL SC SCH (15:15)
[2021-09-18] MEDS: Multivit, Therapeutic 1 TAB PO SCH (20:02)
[2021-09-18] MEDS: Cyanocobalamin (Vitamin B-12) 1,000 MCG TAB PO SCH (20:02)
[2021-09-18] MEDS: Folic Acid 1 MG TAB PO SCH (20:02)
[2021-09-18] MEDS: Thiamine 100 MG TAB PO SCH (20:02)
[2021-09-18] MEDS: pyridOXINE 50 MG (B6) TAB PO SCH (20:02)
[2021-09-19] MEDS: DOBUTamine 500 mg/250 ml 250 ML IVPB SCH (02:03)
[2021-09-19] MEDS: Furosemide 40 MG/4 ML VIAL SLOW IVP SCH ×2 (05:18→14:19)
[2021-09-19 05:39] LABS: Anion Gap 9 mmol/L (10-20); BUN (Urea Nitrogen) 16 mg/dL (8.9-20.6); Calc. Creatinine Clearance 111 mL/min (70-130); Calcium 8.4 mg/dL (7.8-10.44); Carbon Dioxide 28 mmol/L (22-29); Chloride 101 mmol/L (98-107); Glucose 222 mg/dL (70-105); Magnesium 1.6 mg/dL (1.6-2.6); Potassium 3.1 mmol/L (3.5-5.1); Sodium 135 mmol/L (136-145)
[2021-09-19] MEDS ORDERED: Magnesium 2 GM/50 ML(in water) 2 GM in Premix Bag 1 BAG IVPB SCH ×2 (06:00→16:00)
[2021-09-19] MEDS: HumaLOG 300 UNITS/3 ML VIAL SC PRN ×2 (06:02→21:13)
[2021-09-19] MEDS ORDERED: glipiZIDE 5 MG TAB PO SCH (07:30)
[2021-09-19] MEDS ORDERED: Potassium Chloride 20 MEQ TAB PO SCH (08:00)
[2021-09-19] MEDS: Heparin 5,000 UNITS/ML VIAL SC SCH ×2 (10:01→21:13)
[2021-09-19] MEDS: metFORMIN 500 MG TAB PO SCH ×2 (10:04→16:29)
[2021-09-19] MEDS: Digoxin 0.25 MG TAB PO SCH (10:04)
[2021-09-19] MEDS: Empagliflozin 10 MG TAB PO SCH (10:05)
[2021-09-19] MEDS: Folic Acid 1 MG TAB PO SCH ×2 (10:05→21:14)
[2021-09-19] MEDS: Albuterol 200 PUFF (6.7GM INHALER) INH SCH ×3 (14:10→22:40)
[2021-09-19] MEDS: Cyanocobalamin (Vitamin B-12) 1,000 MCG TAB PO SCH (21:13)
[2021-09-19] MEDS: Thiamine 100 MG TAB PO SCH (21:14)
[2021-09-19] MEDS: Multivit, Therapeutic 1 TAB PO SCH (21:14)
[2021-09-19] MEDS: pyridOXINE 50 MG (B6) TAB PO SCH (21:14)
[2021-09-20] MEDS: DOBUTamine 500 mg/250 ml 250 ML IVPB SCH ×2 (01:24→21:23)
[2021-09-20] MEDS: Albuterol 200 PUFF (6.7GM INHALER) INH SCH ×3 (02:47→10:09)
[2021-09-20] MEDS: Furosemide 40 MG/4 ML VIAL SLOW IVP SCH ×2 (05:02→15:40)
[2021-09-20 05:23] LABS: Anion Gap 11 mmol/L (10-20); BUN (Urea Nitrogen) 16 mg/dL (8.9-20.6); Calc. Creatinine Clearance 92 mL/min (70-130); Calcium 8.6 mg/dL (7.8-10.44); Carbon Dioxide 28 mmol/L (22-29); Chloride 102 mmol/L (98-107); Glucose 232 mg/dL (70-105); Magnesium 2.1 mg/dL (1.6-2.6); Potassium 3.5 mmol/L (3.5-5.1); Sodium 137 mmol/L (136-145)
[2021-09-20] MEDS: HumaLOG 300 UNITS/3 ML VIAL SC PRN ×2 (05:26→21:16)
[2021-09-20] MEDS: glipiZIDE 5 MG TAB PO SCH (07:52)
[2021-09-20] MEDS: metFORMIN 500 MG TAB PO SCH ×2 (07:53→17:33)
[2021-09-20] MEDS: Folic Acid 1 MG TAB PO SCH ×2 (07:53→21:15)
[2021-09-20] MEDS: Digoxin 0.25 MG TAB PO SCH (07:53)
[2021-09-20] MEDS: Empagliflozin 10 MG TAB PO SCH (07:54)
[2021-09-20] MEDS ORDERED: Potassium Chloride 20 MEQ TAB PO SCH (08:00)
[2021-09-20] MEDS: Heparin 5,000 UNITS/ML VIAL SC SCH ×2 (10:05→21:15)
[2021-09-20] MEDS ORDERED: Albuterol 200 PUFF (6.7GM INHALER) INH PRN (10:13)
[2021-09-20] MEDS: Cyanocobalamin (Vitamin B-12) 1,000 MCG TAB PO SCH (21:15)
[2021-09-20] MEDS: Thiamine 100 MG TAB PO SCH (21:16)
[2021-09-20] MEDS: pyridOXINE 50 MG (B6) TAB PO SCH (21:16)
[2021-09-20] MEDS: Multivit, Therapeutic 1 TAB PO SCH (21:16)
[2021-09-21 04:32] LABS: #Eosinphils 0.4 thou/uL (0.0-0.7); #Lymphocytes 1.6 thou/uL (1.20-3.40); #Monocytes 0.7 thou/uL (0.11-0.59); %Basophils 0.3 % (0.0-1.0); %Eosinophils 4.8 % (0.0-10.0); %Lymphocytes 21.3 % (21.0-51.0); %Neutrophils 64.7 % (42.0-75.0); Hemoglobin 14.7 g/dL (14.0-18.0); Mean Corpuscular HGB CONC 32.1 g/dL (32.0-36.0); Mean Corpuscular Hemoglobin 29.3 pg (27.0-31.0); Mean Corpuscular Volume 91.1 fL (78.0-98.0); Mean Platelet Volume 8.2 fL (7.4-10.4); Platelet Count 202 thou/uL (130-400); RBC Distribution Width 13.6 % (11.5-14.5); Red Blood Cell (RBC) Count 5.04 mill/uL (4.70-6.10); White Blood Cell (WBC) Count 7.7 thou/uL (4.8-10.8)
[2021-09-21 04:58] LABS: Anion Gap 14 mmol/L (10-20); BUN (Urea Nitrogen) 19 mg/dL (8.9-20.6); Calc. Creatinine Clearance 88 mL/min (70-130); Calcium 9.2 mg/dL (7.8-10.44); Carbon Dioxide 27 mmol/L (22-29); Chloride 103 mmol/L (98-107); Glucose 208 mg/dL (70-105); Magnesium 2.1 mg/dL (1.6-2.6); Potassium 3.5 mmol/L (3.5-5.1); Sodium 140 mmol/L (136-145)
[2021-09-21] MEDS: Furosemide 40 MG/4 ML VIAL SLOW IVP SCH ×2 (05:41→16:34)
[2021-09-21] MEDS: HumaLOG 300 UNITS/3 ML VIAL SC PRN ×2 (05:41→12:42)
[2021-09-21] MEDS ORDERED: Potassium Chloride 20 MEQ TAB PO SCH (06:15)
[2021-09-21] MEDS: Digoxin 0.25 MG TAB PO SCH (09:38)
[2021-09-21] MEDS: Empagliflozin 10 MG TAB PO SCH (09:38)
[2021-09-21] MEDS: Folic Acid 1 MG TAB PO SCH ×2 (09:38→21:02)
[2021-09-21] MEDS: Heparin 5,000 UNITS/ML VIAL SC SCH ×2 (09:38→21:02)
[2021-09-21] MEDS: metFORMIN 500 MG TAB PO SCH ×2 (09:38→16:34)
[2021-09-21] MEDS: glipiZIDE 5 MG TAB PO SCH ×2 (09:38→16:34)
[2021-09-21] MEDS: Cyanocobalamin (Vitamin B-12) 1,000 MCG TAB PO SCH (21:02)
[2021-09-21] MEDS: pyridOXINE 50 MG (B6) TAB PO SCH (21:02)
[2021-09-21] MEDS: Thiamine 100 MG TAB PO SCH (21:02)
[2021-09-21] MEDS: Multivit, Therapeutic 1 TAB PO SCH (21:02)
[2021-09-21] MEDS: DOBUTamine 500 mg/250 ml 250 ML IVPB SCH (21:19)
[2021-09-22 04:50] LABS: Anion Gap 15 mmol/L (10-20); BUN (Urea Nitrogen) 21 mg/dL (8.9-20.6); Calc. Creatinine Clearance 84 mL/min (70-130); Calcium 9.3 mg/dL (7.8-10.44); Carbon Dioxide 27 mmol/L (22-29); Chloride 100 mmol/L (98-107); Glucose 167 mg/dL (70-105); Magnesium 1.9 mg/dL (1.6-2.6); Potassium 4.1 mmol/L (3.5-5.1); Sodium 138 mmol/L (136-145)
[2021-09-22] MEDS: Furosemide 40 MG/4 ML VIAL SLOW IVP SCH ×2 (05:36→13:57)
[2021-09-22] MEDS ORDERED: Magnesium 2 GM/50 ML(in water) 2 GM in Premix Bag 1 BAG IVPB SCH (08:00)
[2021-09-22] MEDS: Folic Acid 1 MG TAB PO SCH ×2 (09:47→20:21)
[2021-09-22] MEDS: Empagliflozin 10 MG TAB PO SCH (09:47)
[2021-09-22] MEDS: glipiZIDE 5 MG TAB PO SCH ×2 (09:47→17:22)
[2021-09-22] MEDS: metFORMIN 500 MG TAB PO SCH ×2 (09:47→17:22)
[2021-09-22] MEDS: Digoxin 0.25 MG TAB PO SCH (09:48)
[2021-09-22] MEDS: Heparin 5,000 UNITS/ML VIAL SC SCH ×2 (09:49→20:21)
[2021-09-22] MEDS: HumaLOG 300 UNITS/3 ML VIAL SC PRN ×2 (12:16→20:25)
[2021-09-22] MEDS: Cyanocobalamin (Vitamin B-12) 1,000 MCG TAB PO SCH (20:21)
[2021-09-22] MEDS: Thiamine 100 MG TAB PO SCH (20:21)
[2021-09-22] MEDS: pyridOXINE 50 MG (B6) TAB PO SCH (20:21)
[2021-09-22] MEDS: Multivit, Therapeutic 1 TAB PO SCH (20:21)
[2021-09-22] MEDS: DOBUTamine 500 mg/250 ml 250 ML IVPB SCH (22:05)
[2021-09-23 05:04] LABS: Anion Gap 17 mmol/L (10-20); BUN (Urea Nitrogen) 31 mg/dL (8.9-20.6); Calc. Creatinine Clearance 85 mL/min (70-130); Calcium 9.5 mg/dL (7.8-10.44); Carbon Dioxide 26 mmol/L (22-29); Chloride 98 mmol/L (98-107); Glucose 126 mg/dL (70-105); Sodium 137 mmol/L (136-145)
[2021-09-23] MEDS: Furosemide 40 MG/4 ML VIAL SLOW IVP SCH ×2 (05:29→15:45)
[2021-09-23] MEDS: HumaLOG 300 UNITS/3 ML VIAL SC PRN ×3 (05:52→17:06)
[2021-09-23] MEDS: Digoxin 0.25 MG TAB PO SCH (08:50)
[2021-09-23] MEDS: glipiZIDE 5 MG TAB PO SCH ×2 (08:50→17:06)
[2021-09-23] MEDS: Empagliflozin 10 MG TAB PO SCH (08:50)
[2021-09-23] MEDS: Folic Acid 1 MG TAB PO SCH ×2 (08:50→20:39)
[2021-09-23] MEDS: metFORMIN 500 MG TAB PO SCH ×2 (08:50→17:06)
[2021-09-23] MEDS: Heparin 5,000 UNITS/ML VIAL SC SCH ×2 (08:51→20:39)
[2021-09-23] MEDS: pyridOXINE 50 MG (B6) TAB PO SCH (20:39)
[2021-09-23] MEDS: Cyanocobalamin (Vitamin B-12) 1,000 MCG TAB PO SCH (20:39)
[2021-09-23] MEDS: Thiamine 100 MG TAB PO SCH (20:39)
[2021-09-23] MEDS: Multivit, Therapeutic 1 TAB PO SCH (20:39)
[2021-09-24] MEDS: DOBUTamine 500 mg/250 ml 250 ML IVPB SCH (00:48)
[2021-09-24 05:18] LABS: Anion Gap 14 mmol/L (10-20); BUN (Urea Nitrogen) 29 mg/dL (8.9-20.6); Calc. Creatinine Clearance 83 mL/min (70-130); Calcium 9.4 mg/dL (7.8-10.44); Carbon Dioxide 27 mmol/L (22-29); Chloride 97 mmol/L (98-107); Glucose 143 mg/dL (70-105); Magnesium 2.1 mg/dL (1.6-2.6); Potassium 3.8 mmol/L (3.5-5.1); Sodium 134 mmol/L (136-145)
[2021-09-24] MEDS: Furosemide 40 MG/4 ML VIAL SLOW IVP SCH ×2 (06:29→14:49)
[2021-09-24] MEDS: Digoxin 0.25 MG TAB PO SCH (08:37)
[2021-09-24] MEDS: Heparin 5,000 UNITS/ML VIAL SC SCH ×2 (08:37→21:37)
[2021-09-24] MEDS: Folic Acid 1 MG TAB PO SCH ×2 (08:38→21:36)
[2021-09-24] MEDS: glipiZIDE 5 MG TAB PO SCH ×2 (08:38→16:45)
[2021-09-24] MEDS: Empagliflozin 10 MG TAB PO SCH (08:38)
[2021-09-24] MEDS: metFORMIN 500 MG TAB PO SCH ×2 (08:38→16:45)
[2021-09-24] MEDS: Thiamine 100 MG TAB PO SCH (21:36)
[2021-09-24] MEDS: Cyanocobalamin (Vitamin B-12) 1,000 MCG TAB PO SCH (21:36)
[2021-09-24] MEDS: Multivit, Therapeutic 1 TAB PO SCH (21:36)
[2021-09-24] MEDS: pyridOXINE 50 MG (B6) TAB PO SCH (21:36)
[2021-09-25 05:52] LABS: Magnesium 2.4 mg/dL (1.6-2.6)
[2021-09-25] MEDS: glipiZIDE 5 MG TAB PO SCH (05:54)
[2021-09-25] MEDS ORDERED: Carvedilol 3.125 MG TAB PO SCH (08:00)
[2021-09-25 08:34] LABS: Anion Gap 16 mmol/L (10-20); BUN (Urea Nitrogen) 30 mg/dL (8.9-20.6); Calc. Creatinine Clearance 68 mL/min (70-130); Calcium 9.4 mg/dL (7.8-10.44); Carbon Dioxide 27 mmol/L (22-29); Chloride 97 mmol/L (98-107); Glucose 143 mg/dL (70-105); Sodium 136 mmol/L (136-145)
[2021-09-25] MEDS ORDERED: Bumetanide 1 MG TAB PO SCH (09:00)
[2021-09-25] MEDS: Digoxin 0.25 MG TAB PO SCH (09:05)
[2021-09-25] MEDS: Empagliflozin 10 MG TAB PO SCH (09:05)
[2021-09-25] MEDS: metFORMIN 500 MG TAB PO SCH (09:05)
[2021-09-25] MEDS: Folic Acid 1 MG TAB PO SCH (09:06)
[2021-09-25 12:05] VITALS: TEMP 98
[2021-09-25 12:22] VITALS: BP 110/69
== END 2021-09-25 14:31 | disposition home or self-care (01) | DRG 291 ==
LOC: ERS 18:36 → ERHOLD 23:02 → OBSVTOIN 09-16 00:01 → CCU 09-16 09:30 → 2NO 09-16 18:18
PROVIDERS: ADMIT Internal Medicine; ATTEND Internal Medicine
PROC: 3E033XZ Introduction of Vasopressor into Peripheral Vein, Percutaneous Approach (ICD-10-PCS; principal; 2021-09-16)
DX: I13.0 Hypertensive heart and chronic kidney disease with heart failure and stage 1 through stage 4 chronic kidney disease, or unspecified chronic kidney disease (principal); I50.43 Acute on chronic combined systolic (congestive) and diastolic (congestive) heart failure; N17.9 Acute kidney failure, unspecified; Z20.822 Contact with and (suspected) exposure to COVID-19; I42.0 Dilated cardiomyopathy; E83.42 Hypomagnesemia; E87.6 Hypokalemia; N18.2 Chronic kidney disease, stage 2 (mild); E11.22 Type 2 diabetes mellitus with diabetic chronic kidney disease; Z95.810 Presence of automatic (implantable) cardiac defibrillator; Z91.013 Allergy to seafood; Z91.018 Allergy to other foods; Z79.899 Other long term (current) drug therapy; Z79.84 Long term (current) use of oral hypoglycemic drugs; Z98.890 Other specified postprocedural states
CPT/HCPCS: 36415; 36416; 71045; 71275; 80048; 80053; 80076; 83735; 83880; 84100; 84484; 85025; 93005; 93306; 93798; 96374; J1250; J1644; J1815; J1940; J2405; J2760; J3475; Q9967; U0002; U0003; U0005

== ENCOUNTER 2022-04-19 18:46 | Inpatient (IN) | payer SELFPAY ==
[2022-04-19 19:53] LABS: #Eosinphils 0.1 thou/uL (0.0-0.7); #Lymphocytes 2.9 thou/uL (1.20-3.40); #Neutrophils 7.9 thou/uL (1.40-6.50); %Basophils 0.2 % (0.0-1.0); %Eosinophils 0.7 % (0.0-10.0); %Lymphocytes 24.3 % (21.0-51.0); %Monocytes 8.1 % (0.0-10.0); %Neutrophils 66.7 % (42.0-75.0); Hemoglobin 14.8 g/dL (14.0-18.0); Mean Corpuscular HGB CONC 32.1 g/dL (32.0-36.0); Mean Corpuscular Hemoglobin 28.1 pg (27.0-31.0); Mean Corpuscular Volume 87.3 fl (78.0-98.0); Mean Platelet Volume 8.8 fL (7.4-10.4); Platelet Count 235 10x3/uL (130-400); RBC Distribution Width 13.3 % (11.5-14.5); Red Blood Cell (RBC) Count 5.28 mill/uL (4.70-6.10); White Blood Cell (WBC) Count 11.8 10x3/uL (4.8-10.8)
[2022-04-19 20:15] LABS: ALT (SGPT) 586 U/L (8-55); AST (SGOT) 487 U/L (5-34); Alkaline Phosphatase 148 U/L (40-110); Anion Gap 17 mmol/L (10-20); BUN (Urea Nitrogen) 30 mg/dL (8.9-20.6); Bilirubin, Total 4.5 mg/dL (0.2-1.2); Calc. Creatinine Clearance 0 mL/min (70-130); Calcium 8.8 mg/dL (7.8-10.44); Carbon Dioxide 25 mmol/L (22-29); Chloride 96 mmol/L (98-107); Estimated GFR 58; Globulin 2.3 g/dL (2.4-3.5); Glucose 139 mg/dL (70-105); Lipase 7 U/L (8-78); Potassium 3.8 mmol/L (3.5-5.1); Protein, Total 6.3 g/dL (6.0-8.3); Sodium 134 mmol/L (136-145)
[2022-04-19] MEDS ORDERED: Aspirin Chewable 81 MG TAB ONE (20:44)
[2022-04-19] MEDS ORDERED: Ondansetron PF 4 MG/2 ML Vial ONE (20:44)
[2022-04-19] MEDS ORDERED: Furosemide 40 MG/4 ML VIAL ONE (20:44)
[2022-04-19 21:08] LABS: INR-International Normal Ratio 1.5; PTT 29.6 sec (22.9-36.1); Prothrombin Time 18.7 sec (12.0-14.7)
[2022-04-19 21:35] LABS: Bacteria/HPF None Seen HPF (None Seen); Bilirubin 1+ (Negative); Blood, Urine Negative (Negative); Clarity Clear (Clear); Glucose, Urine (Dipstick) Normal (Negative); Ketone, Urine Negative (Negative); Leukocyte Negative Leu/uL (Negative); Nitrite Negative (Negative); Protein, Urine (Dipstick) 100 mg/dL (Neg-Trace); RBC/HPF 0-3 HPF (0-3); Specific Gravity, Urine 1.023 (1.002-1.036); Squamous Epithelial 0-3 HPF (0-3); Urobilinogen 6 mg/dL (Less than 2); pH, Urine 5.5 (5.0-9.0)
[2022-04-19 22:29] LABS: SARS-CoV-2 NAA Rapid Test Not Detected (NotDetected)
[2022-04-19] MEDS ORDERED: Furosemide 100 MG in Sodium Chloride 0.9% 100 ML IVPB SCH (23:45)
[2022-04-20] MEDS ORDERED: Acetaminophen 650 MG Suppository PR PRN (00:22)
[2022-04-20] MEDS ORDERED: Ondansetron ODT 4 MG TAB PO PRN (00:22)
[2022-04-20] MEDS ORDERED: Ondansetron PF 4 MG/2 ML Vial IVP PRN (00:22)
[2022-04-20 01:20] LABS: Troponin I 0.023 ng/mL (< 0.028)
[2022-04-20] MEDS ORDERED: Furosemide 40 MG/4 ML VIAL SLOW IVP SCH (03:00)
[2022-04-20] MEDS ORDERED: Furosemide 100 MG/10 ML VIAL ONE (03:11)
[2022-04-20] MEDS ORDERED: Dextrose 5% in Water 1,000 ML IV PRN (03:13)
[2022-04-20] MEDS ORDERED: Dextrose 50% Abboject 50 ML SYRINGE SLOW IVP PRN (03:13)
[2022-04-20] MEDS ORDERED: Electrolyte Replacement Protocol 1 EACH FS SCH (03:15)
[2022-04-20 04:38] LABS: #Eosinphils 0.2 thou/uL (0.0-0.7); #Lymphocytes 2.6 thou/uL (1.20-3.40); #Monocytes 0.7 thou/uL (0.11-0.59); %Basophils 0.4 % (0.0-1.0); %Eosinophils 1.9 % (0.0-10.0); %Lymphocytes 27.7 % (21.0-51.0); %Monocytes 6.9 % (0.0-10.0); %Neutrophils 63.1 % (42.0-75.0); Hemoglobin 14.8 g/dL (14.0-18.0); Mean Corpuscular HGB CONC 33.1 g/dL (32.0-36.0); Mean Corpuscular Hemoglobin 28.7 pg (27.0-31.0); Mean Corpuscular Volume 86.8 fl (78.0-98.0); Mean Platelet Volume 8.6 fL (7.4-10.4); Platelet Count 225 10x3/uL (130-400); RBC Distribution Width 13.2 % (11.5-14.5); Red Blood Cell (RBC) Count 5.15 mill/uL (4.70-6.10); White Blood Cell (WBC) Count 9.5 10x3/uL (4.8-10.8)
[2022-04-20 04:56] LABS: Magnesium 1.3 mg/dL (1.6-2.6)
[2022-04-20 04:58] LABS: Anion Gap 17 mmol/L (10-20); BUN (Urea Nitrogen) 31 mg/dL (8.9-20.6); Calc. Creatinine Clearance 0 mL/min (70-130); Calcium 8.6 mg/dL (7.8-10.44); Carbon Dioxide 24 mmol/L (22-29); Chloride 98 mmol/L (98-107); Estimated GFR 68; Glucose 184 mg/dL (70-105); Potassium 3.5 mmol/L (3.5-5.1); Sodium 135 mmol/L (136-145)
[2022-04-20 06:11] LABS: HBSAg Index 0.35 S/CO (0-0.99); Hep A IgM AB Non-Reactive (NonReactive); Hep A IgM S/CO 0.14 S/CO (0-0.79); Hep B Surf Ag Non-Reactive S/CO (NonReactive); Hep C IgG Ab Non-Reactive (NonReactive); Hep C Index 0.06 S/CO (0-0.79)
[2022-04-20 07:21] LABS: Hepatitis B Core IgM Abs Non-Reactive (NonReactive)
[2022-04-20] MEDS ORDERED: Magnesium Sulfate In Water 4 GM in Premix Bag 1 BAG IVPB SCH (08:00)
[2022-04-20] MEDS ORDERED: Potassium Chloride 20 MEQ TAB PO SCH (08:00)
[2022-04-20] MEDS ORDERED: Potassium Chloride 20 MEQ TAB ONE (08:14)
[2022-04-20] MEDS: Metolazone 5 MG TAB PO SCH (08:54)
[2022-04-20] MEDS: Empagliflozin 10 MG TAB PO SCH (09:54)
[2022-04-20] MEDS: Carvedilol 3.125 MG TAB PO SCH ×2 (09:57→20:48)
[2022-04-20] MEDS ORDERED: Digoxin 0.25 MG TAB ONE (10:58)
[2022-04-20] MEDS: Digoxin 0.25 MG TAB PO SCH (11:00)
[2022-04-20] MEDS ORDERED: HumaLOG 300 UNITS/3 ML VIAL ONE (12:07)
[2022-04-20] MEDS: HumaLOG 300 UNITS/3 ML VIAL SC PRN (12:10)
[2022-04-20] MEDS ORDERED: Furosemide 20 MG/2 ML VIAL SLOW IVP SCH ×2 (14:00→19:15)
[2022-04-20] MEDS: Albuterol 200 PUFF (6.7GM INHALER) INH SCH ×3 (16:57→21:36)
[2022-04-20 18:19] VITALS: BMI 23.0
[2022-04-21] MEDS: Albuterol 200 PUFF (6.7GM INHALER) INH SCH ×6 (01:34→23:43)
[2022-04-21] MEDS: Acetaminophen 325 MG TAB PO PRN ×2 (04:29→21:07)
[2022-04-21 04:52] LABS: #Basophils 0.1 thou/uL (0.0-0.2); #Eosinphils 0.2 thou/uL (0.0-0.7); #Lymphocytes 2.2 thou/uL (1.20-3.40); #Monocytes 0.7 thou/uL (0.11-0.59); %Basophils 0.5 % (0.0-1.0); %Eosinophils 1.9 % (0.0-10.0); %Monocytes 6.7 % (0.0-10.0); %Neutrophils 68.9 % (42.0-75.0); Hemoglobin 15.8 g/dL (14.0-18.0); Mean Corpuscular HGB CONC 32.4 g/dL (32.0-36.0); Mean Corpuscular Hemoglobin 28.7 pg (27.0-31.0); Mean Corpuscular Volume 88.5 fl (78.0-98.0); Mean Platelet Volume 8.9 fL (7.4-10.4); Platelet Count 261 10x3/uL (130-400); RBC Distribution Width 13.4 % (11.5-14.5); Red Blood Cell (RBC) Count 5.52 mill/uL (4.70-6.10); White Blood Cell (WBC) Count 10.1 10x3/uL (4.8-10.8)
[2022-04-21 05:07] LABS: ALT (SGPT) 546 U/L (8-55); AST (SGOT) 202 U/L (5-34); Albumin 3.7 g/dL (3.5-5.0); Alkaline Phosphatase 245 U/L (40-110); Anion Gap 14 mmol/L (10-20); BUN (Urea Nitrogen) 31 mg/dL (8.9-20.6); Calc. Creatinine Clearance 71 mL/min (70-130); Calcium 8.6 mg/dL (7.8-10.44); Carbon Dioxide 27 mmol/L (22-29); Chloride 96 mmol/L (98-107); Estimated GFR 60; Globulin 2.7 g/dL (2.4-3.5); Glucose 149 mg/dL (70-105); Potassium 3.3 mmol/L (3.5-5.1); Protein, Total 6.4 g/dL (6.0-8.3); Sodium 134 mmol/L (136-145)
[2022-04-21] MEDS: Furosemide 20 MG/2 ML VIAL SLOW IVP SCH ×2 (05:39→14:36)
[2022-04-21] MEDS: HumaLOG 300 UNITS/3 ML VIAL SC PRN ×3 (05:40→17:18)
[2022-04-21] MEDS ORDERED: Potassium Chloride 20 MEQ TAB PO SCH ×2 (08:00)
[2022-04-21] MEDS: Digoxin 0.25 MG TAB PO SCH (09:11)
[2022-04-21] MEDS: Potassium Chloride 20 MEQ TAB PO SCH ×3 (09:11→21:00)
[2022-04-21] MEDS: Metolazone 5 MG TAB PO SCH (09:11)
[2022-04-21] MEDS: Empagliflozin 10 MG TAB PO SCH (09:11)
[2022-04-21] MEDS: Carvedilol 3.125 MG TAB PO SCH ×2 (09:11→21:10)
[2022-04-21] MEDS ORDERED: DOBUTamine 500 mg/250 ml 250 ML IVPB SCH (15:00)
[2022-04-21] MEDS: DOPamine 400 MG/D5W 250 ML 250 ML IVPB SCH (22:38)
[2022-04-22 05:30] LABS: ALT (SGPT) 435 U/L (8-55); AST (SGOT) 110 U/L (5-34); Albumin 3.7 g/dL (3.5-5.0); Alkaline Phosphatase 274 U/L (40-110); Anion Gap 12 mmol/L (10-20); BUN (Urea Nitrogen) 29 mg/dL (8.9-20.6); Bilirubin, Total 1.6 mg/dL (0.2-1.2); Calc. Creatinine Clearance 69 mL/min (70-130); Calcium 8.6 mg/dL (7.8-10.44); Carbon Dioxide 30 mmol/L (22-29); Chloride 96 mmol/L (98-107); Estimated GFR 59; Globulin 2.8 g/dL (2.4-3.5); Glucose 290 mg/dL (70-105); Potassium 4.3 mmol/L (3.5-5.1); Protein, Total 6.5 g/dL (6.0-8.3); Sodium 134 mmol/L (136-145)
[2022-04-22] MEDS: Furosemide 20 MG/2 ML VIAL SLOW IVP SCH ×2 (06:59→14:46)
[2022-04-22] MEDS: HumaLOG 300 UNITS/3 ML VIAL SC PRN ×3 (06:59→20:11)
[2022-04-22] MEDS: Albuterol 200 PUFF (6.7GM INHALER) INH SCH ×5 (07:14→22:15)
[2022-04-22] MEDS ORDERED: Potassium Chloride 20 MEQ TAB PO SCH (08:00)
[2022-04-22] MEDS: Carvedilol 3.125 MG TAB PO SCH ×2 (09:13→20:09)
[2022-04-22] MEDS: Metolazone 5 MG TAB PO SCH (09:13)
[2022-04-22] MEDS: Digoxin 0.25 MG TAB PO SCH (09:13)
[2022-04-22] MEDS: Empagliflozin 10 MG TAB PO SCH (09:13)
[2022-04-22] MEDS: Acetaminophen 325 MG TAB PO PRN (18:07)
[2022-04-22] MEDS: DOPamine 400 MG/D5W 250 ML 250 ML IVPB SCH (22:07)
[2022-04-23] MEDS: Albuterol 200 PUFF (6.7GM INHALER) INH SCH ×6 (01:50→22:26)
[2022-04-23] MEDS: Furosemide 20 MG/2 ML VIAL SLOW IVP SCH ×2 (06:27→14:44)
[2022-04-23] MEDS: HumaLOG 300 UNITS/3 ML VIAL SC PRN ×3 (06:35→17:03)
[2022-04-23] MEDS: Acetaminophen 325 MG TAB PO PRN ×3 (07:08→21:41)
[2022-04-23] MEDS ORDERED: DOPamine 400 MG/D5W 250 ML 250 ML IVPB SCH (08:15)
[2022-04-23 08:19] LABS: #Eosinphils 0.3 thou/uL (0.0-0.7); #Lymphocytes 1.2 thou/uL (1.20-3.40); #Monocytes 0.6 thou/uL (0.11-0.59); #Neutrophils 5.3 thou/uL (1.40-6.50); %Basophils 0.5 % (0.0-1.0); %Eosinophils 3.6 % (0.0-10.0); %Lymphocytes 16.1 % (21.0-51.0); %Monocytes 7.6 % (0.0-10.0); %Neutrophils 72.2 % (42.0-75.0); Mean Corpuscular HGB CONC 32.2 g/dL (32.0-36.0); Mean Corpuscular Hemoglobin 28.8 pg (27.0-31.0); Mean Corpuscular Volume 89.6 fl (78.0-98.0); Mean Platelet Volume 7.9 fL (7.4-10.4); Platelet Count 334 10x3/uL (130-400); RBC Distribution Width 13.3 % (11.5-14.5); Red Blood Cell (RBC) Count 5.91 mill/uL (4.70-6.10); White Blood Cell (WBC) Count 7.3 10x3/uL (4.8-10.8)
[2022-04-23 08:47] LABS: ALT (SGPT) 293 U/L (8-55); AST (SGOT) 54 U/L (5-34); Albumin 3.6 g/dL (3.5-5.0); Alkaline Phosphatase 295 U/L (40-110); Anion Gap 12 mmol/L (10-20); BUN (Urea Nitrogen) 20 mg/dL (8.9-20.6); Bilirubin, Total 0.9 mg/dL (0.2-1.2); Calc. Creatinine Clearance 77 mL/min (70-130); Calcium 8.9 mg/dL (7.8-10.44); Carbon Dioxide 29 mmol/L (22-29); Chloride 98 mmol/L (98-107); Estimated GFR 69; Glucose 305 mg/dL (70-105); Potassium 4.3 mmol/L (3.5-5.1); Protein, Total 6.6 g/dL (6.0-8.3); Sodium 135 mmol/L (136-145)
[2022-04-23] MEDS: Empagliflozin 10 MG TAB PO SCH (09:02)
[2022-04-23] MEDS: Metolazone 5 MG TAB PO SCH ×2 (09:03→09:09)
[2022-04-23] MEDS: metFORMIN 500 MG TAB PO SCH ×2 (09:04→16:57)
[2022-04-23] MEDS: Digoxin 0.25 MG TAB PO SCH (09:04)
[2022-04-23] MEDS: glipiZIDE 5 MG TAB PO SCH ×2 (09:04→16:57)
[2022-04-23] MEDS: Carvedilol 3.125 MG TAB PO SCH ×2 (09:05→21:41)
[2022-04-23] MEDS: Potassium Bicarbonate/Cit Ac 20 MEQ TAB PO SCH (09:05)
[2022-04-24] MEDS: Albuterol 200 PUFF (6.7GM INHALER) INH SCH ×5 (02:26→21:46)
[2022-04-24] MEDS: Furosemide 20 MG/2 ML VIAL SLOW IVP SCH (06:17)
[2022-04-24] MEDS: Acetaminophen 325 MG TAB PO PRN ×2 (06:18→13:31)
[2022-04-24] MEDS: HumaLOG 300 UNITS/3 ML VIAL SC PRN ×3 (06:36→21:16)
[2022-04-24 09:08] LABS: ALT (SGPT) 222 U/L (8-55); AST (SGOT) 54 U/L (5-34); Albumin 3.6 g/dL (3.5-5.0); Alkaline Phosphatase 190 U/L (40-110); Anion Gap 13 mmol/L (10-20); BUN (Urea Nitrogen) 28 mg/dL (8.9-20.6); Calc. Creatinine Clearance 80 mL/min (70-130); Calcium 8.7 mg/dL (7.8-10.44); Carbon Dioxide 29 mmol/L (22-29); Chloride 97 mmol/L (98-107); Estimated GFR 70; Globulin 2.6 g/dL (2.4-3.5); Glucose 155 mg/dL (70-105); Potassium 4.6 mmol/L (3.5-5.1); Protein, Total 6.2 g/dL (6.0-8.3); Sodium 134 mmol/L (136-145)
[2022-04-24] MEDS: Digoxin 0.25 MG TAB PO SCH (09:43)
[2022-04-24] MEDS: glipiZIDE 5 MG TAB PO SCH ×2 (09:43→16:28)
[2022-04-24] MEDS: Potassium Bicarbonate/Cit Ac 20 MEQ TAB PO SCH (09:44)
[2022-04-24] MEDS: Metolazone 5 MG TAB PO SCH (09:51)
[2022-04-24] MEDS: metFORMIN 500 MG TAB PO SCH ×2 (09:51→16:40)
[2022-04-24] MEDS: Furosemide 40 MG TAB PO SCH ×2 (09:52→13:27)
[2022-04-24] MEDS: Carvedilol 3.125 MG TAB PO SCH ×2 (09:52→21:14)
[2022-04-24] MEDS ORDERED: DOBUTamine 500 mg/250 ml 250 ML IVPB SCH ×2 (12:00→12:30)
[2022-04-24] MEDS ORDERED: traMADol HCl 50 MG TAB PO PRN (14:31)
[2022-04-24] MEDS: Morphine 2 MG/ML VIAL SLOW IVP PRN ×2 (16:28→21:22)
[2022-04-25] MEDS: Albuterol 200 PUFF (6.7GM INHALER) INH SCH ×6 (01:06→22:19)
[2022-04-25 05:11] LABS: ALT (SGPT) 177 U/L (8-55); AST (SGOT) 46 U/L (5-34); Albumin 3.4 g/dL (3.5-5.0); Alkaline Phosphatase 185 U/L (40-110); Anion Gap 11 mmol/L (10-20); BUN (Urea Nitrogen) 25 mg/dL (8.9-20.6); Bilirubin, Total 0.7 mg/dL (0.2-1.2); Calc. Creatinine Clearance 100 mL/min (70-130); Calcium 8.8 mg/dL (7.8-10.44); Carbon Dioxide 26 mmol/L (22-29); Chloride 101 mmol/L (98-107); Estimated GFR 92; Globulin 2.5 g/dL (2.4-3.5); Glucose 172 mg/dL (70-105); Potassium 4.5 mmol/L (3.5-5.1); Protein, Total 5.9 g/dL (6.0-8.3); Sodium 133 mmol/L (136-145)
[2022-04-25] MEDS: Morphine 2 MG/ML VIAL SLOW IVP PRN ×4 (06:06→20:37)
[2022-04-25] MEDS: Digoxin 0.25 MG TAB PO SCH (09:37)
[2022-04-25] MEDS: Carvedilol 3.125 MG TAB PO SCH ×2 (09:38→19:59)
[2022-04-25] MEDS: Furosemide 40 MG TAB PO SCH ×2 (09:38→16:33)
[2022-04-25] MEDS: glipiZIDE 5 MG TAB PO SCH ×2 (09:39→16:33)
[2022-04-25] MEDS: Metolazone 5 MG TAB PO SCH (09:39)
[2022-04-25] MEDS: Potassium Bicarbonate/Cit Ac 20 MEQ TAB PO SCH (09:40)
[2022-04-25] MEDS: metFORMIN 500 MG TAB PO SCH ×2 (09:41→16:57)
[2022-04-25] MEDS: HumaLOG 300 UNITS/3 ML VIAL SC PRN ×2 (12:09→16:35)
[2022-04-26] MEDS: Albuterol 200 PUFF (6.7GM INHALER) INH SCH ×6 (03:17→22:41)
[2022-04-26] MEDS ORDERED: Acetaminophen 500 MG TAB PO SCH (03:30)
[2022-04-26] MEDS ORDERED: HYDROcodone/Acetaminophen 5/325 mg Tablet PO SCH (03:45)
[2022-04-26] MEDS: HumaLOG 300 UNITS/3 ML VIAL SC PRN ×2 (07:14→13:45)
[2022-04-26] MEDS: metFORMIN 500 MG TAB PO SCH ×2 (08:19→17:51)
[2022-04-26] MEDS: Metolazone 5 MG TAB PO SCH (08:19)
[2022-04-26] MEDS: Carvedilol 3.125 MG TAB PO SCH ×2 (08:20→20:55)
[2022-04-26] MEDS: Digoxin 0.25 MG TAB PO SCH (08:20)
[2022-04-26] MEDS: glipiZIDE 5 MG TAB PO SCH ×2 (08:20→17:50)
[2022-04-26] MEDS: Potassium Bicarbonate/Cit Ac 20 MEQ TAB PO SCH (08:21)
[2022-04-26] MEDS: Furosemide 40 MG TAB PO SCH ×2 (08:21→15:47)
[2022-04-26 18:01] LABS: ALT (SGPT) 122 U/L (8-55); AST (SGOT) 31 U/L (5-34); Albumin 3.5 g/dL (3.5-5.0); Alkaline Phosphatase 177 U/L (40-110); Anion Gap 13 mmol/L (10-20); BUN (Urea Nitrogen) 28 mg/dL (8.9-20.6); Bilirubin, Total 0.9 mg/dL (0.2-1.2); Calc. Creatinine Clearance 81 mL/min (70-130); Calcium 9.2 mg/dL (7.8-10.44); Carbon Dioxide 24 mmol/L (22-29); Chloride 102 mmol/L (98-107); Estimated GFR 70; Globulin 2.8 g/dL (2.4-3.5); Glucose 150 mg/dL (70-105); Potassium 4.6 mmol/L (3.5-5.1); Protein, Total 6.3 g/dL (6.0-8.3); Sodium 134 mmol/L (136-145)
[2022-04-26] MEDS: Morphine 2 MG/ML VIAL SLOW IVP PRN (19:12)
[2022-04-27] MEDS: Morphine 2 MG/ML VIAL SLOW IVP PRN ×3 (00:11→20:03)
[2022-04-27] MEDS: Albuterol 200 PUFF (6.7GM INHALER) INH SCH ×6 (03:10→23:10)
[2022-04-27 05:18] LABS: Anion Gap 12 mmol/L (10-20); BUN (Urea Nitrogen) 27 mg/dL (8.9-20.6); Calc. Creatinine Clearance 92 mL/min (70-130); Calcium 8.8 mg/dL (7.8-10.44); Carbon Dioxide 24 mmol/L (22-29); Chloride 103 mmol/L (98-107); Estimated GFR 82; Glucose 121 mg/dL (70-105); Potassium 4.1 mmol/L (3.5-5.1); Sodium 135 mmol/L (136-145)
[2022-04-27] MEDS: glipiZIDE 5 MG TAB PO SCH ×2 (09:07→17:50)
[2022-04-27] MEDS: Furosemide 40 MG TAB PO SCH ×2 (09:07→14:17)
[2022-04-27] MEDS: Digoxin 0.25 MG TAB PO SCH (09:07)
[2022-04-27] MEDS: Potassium Bicarbonate/Cit Ac 20 MEQ TAB PO SCH (09:07)
[2022-04-27] MEDS: metFORMIN 500 MG TAB PO SCH ×3 (09:07→18:44)
[2022-04-27] MEDS: Carvedilol 3.125 MG TAB PO SCH ×3 (09:08→20:03)
[2022-04-27] MEDS: HumaLOG 300 UNITS/3 ML VIAL SC PRN ×2 (10:54→17:51)
[2022-04-27] MEDS: Metolazone 5 MG TAB PO SCH (11:13)
[2022-04-28] MEDS: Albuterol 200 PUFF (6.7GM INHALER) INH SCH ×5 (02:20→22:02)
[2022-04-28] MEDS: Morphine 2 MG/ML VIAL SLOW IVP PRN ×3 (06:37→21:47)
[2022-04-28] MEDS: metFORMIN 500 MG TAB PO SCH ×2 (09:02→16:08)
[2022-04-28] MEDS: Potassium Bicarbonate/Cit Ac 20 MEQ TAB PO SCH (09:04)
[2022-04-28] MEDS: glipiZIDE 5 MG TAB PO SCH ×2 (09:05→16:19)
[2022-04-28] MEDS: Furosemide 40 MG TAB PO SCH ×2 (09:05→14:58)
[2022-04-28] MEDS: Digoxin 0.25 MG TAB PO SCH (09:05)
[2022-04-28] MEDS: Metolazone 5 MG TAB PO SCH (09:06)
[2022-04-28] MEDS: Carvedilol 3.125 MG TAB PO SCH ×2 (09:06→20:01)
[2022-04-28] MEDS: HumaLOG 300 UNITS/3 ML VIAL SC PRN ×2 (11:21→18:23)
[2022-04-29] MEDS: Albuterol 200 PUFF (6.7GM INHALER) INH SCH ×2 (01:34→07:13)
[2022-04-29 04:26] LABS: Mean Corpuscular HGB CONC 30.6 g/dL (32.0-36.0); Mean Corpuscular Hemoglobin 27.5 pg (27.0-31.0); Mean Corpuscular Volume 90.1 fl (78.0-98.0); Mean Platelet Volume 8.1 fL (7.4-10.4); Platelet Count 272 10x3/uL (130-400); RBC Distribution Width 13.4 % (11.5-14.5); Red Blood Cell (RBC) Count 5.07 mill/uL (4.70-6.10); White Blood Cell (WBC) Count 7.9 10x3/uL (4.8-10.8)
[2022-04-29 04:53] LABS: ALT (SGPT) 57 U/L (8-55); AST (SGOT) 22 U/L (5-34); Albumin 3.4 g/dL (3.5-5.0); Alkaline Phosphatase 185 U/L (40-110); Anion Gap 12 mmol/L (10-20); BUN (Urea Nitrogen) 19 mg/dL (8.9-20.6); Bilirubin, Total 0.7 mg/dL (0.2-1.2); Calc. Creatinine Clearance 113 mL/min (70-130); Calcium 8.7 mg/dL (7.8-10.44); Carbon Dioxide 23 mmol/L (22-29); Chloride 103 mmol/L (98-107); Estimated GFR 103; Globulin 2.6 g/dL (2.4-3.5); Glucose 204 mg/dL (70-105); Potassium 4.2 mmol/L (3.5-5.1); Sodium 134 mmol/L (136-145)
[2022-04-29] MEDS ORDERED: Albuterol 200 PUFF (6.7GM INHALER) INH PRN (08:11)
[2022-04-29] MEDS: Morphine 2 MG/ML VIAL SLOW IVP PRN ×3 (09:36→19:45)
[2022-04-29] MEDS: Metolazone 5 MG TAB PO SCH (09:38)
[2022-04-29] MEDS: Potassium Bicarbonate/Cit Ac 20 MEQ TAB PO SCH (09:38)
[2022-04-29] MEDS: glipiZIDE 5 MG TAB PO SCH ×2 (09:39→16:42)
[2022-04-29] MEDS: Furosemide 40 MG TAB PO SCH ×2 (09:39→13:03)
[2022-04-29] MEDS: Digoxin 0.25 MG TAB PO SCH (09:39)
[2022-04-29] MEDS: HumaLOG 300 UNITS/3 ML VIAL SC PRN (11:36)
[2022-04-29] MEDS: metFORMIN 500 MG TAB PO SCH (11:38)
[2022-04-29] MEDS: Carvedilol 3.125 MG TAB PO SCH ×2 (11:38→19:46)
[2022-04-30] MEDS: Potassium Bicarbonate/Cit Ac 20 MEQ TAB PO SCH (09:33)
[2022-04-30] MEDS: Digoxin 0.25 MG TAB PO SCH (09:33)
[2022-04-30] MEDS: Carvedilol 3.125 MG TAB PO SCH ×2 (09:33→20:39)
[2022-04-30] MEDS: Metolazone 5 MG TAB PO SCH (09:33)
[2022-04-30] MEDS: glipiZIDE 5 MG TAB PO SCH ×2 (09:33→17:18)
[2022-04-30] MEDS: Furosemide 40 MG TAB PO SCH ×2 (09:34→13:04)
[2022-04-30] MEDS ORDERED: Furosemide 40 MG/4 ML VIAL SLOW IVP SCH (10:00)
[2022-04-30] MEDS: Morphine 2 MG/ML VIAL SLOW IVP PRN ×2 (13:16→20:31)
[2022-04-30] MEDS: HumaLOG 300 UNITS/3 ML VIAL SC PRN (17:19)
[2022-05-01] MEDS: Morphine 2 MG/ML VIAL SLOW IVP PRN ×3 (05:50→19:35)
[2022-05-01 07:58] LABS: Anion Gap 14 mmol/L (10-20); BUN (Urea Nitrogen) 24 mg/dL (8.9-20.6); Calc. Creatinine Clearance 93 mL/min (70-130); Calcium 9.7 mg/dL (7.8-10.44); Carbon Dioxide 26 mmol/L (22-29); Chloride 100 mmol/L (98-107); Estimated GFR 86; Glucose 142 mg/dL (70-105); Potassium 4.3 mmol/L (3.5-5.1); Sodium 136 mmol/L (136-145)
[2022-05-01] MEDS: Metolazone 5 MG TAB PO SCH (10:47)
[2022-05-01] MEDS: Digoxin 0.25 MG TAB PO SCH (10:48)
[2022-05-01] MEDS: Furosemide 40 MG TAB PO SCH ×2 (10:50→18:03)
[2022-05-01] MEDS: Carvedilol 3.125 MG TAB PO SCH ×2 (10:50→19:37)
[2022-05-01] MEDS: Potassium Bicarbonate/Cit Ac 20 MEQ TAB PO SCH (10:50)
[2022-05-01] MEDS ORDERED: diphenhydrAMINE 25 MG CAP PO SCH ×2 (11:30→23:30)
[2022-05-01] MEDS: glipiZIDE 5 MG TAB PO SCH ×2 (11:45→18:03)
[2022-05-01] MEDS: HumaLOG 300 UNITS/3 ML VIAL SC PRN (11:50)
[2022-05-01] MEDS: diphenhydrAMINE 25 MG CAP PO PRN (21:45)
[2022-05-02 08:21] LABS: Anion Gap 16 mmol/L (10-20); BUN (Urea Nitrogen) 22 mg/dL (8.9-20.6); Calc. Creatinine Clearance 100 mL/min (70-130); Calcium 9.9 mg/dL (7.8-10.44); Carbon Dioxide 24 mmol/L (22-29); Chloride 99 mmol/L (98-107); Estimated GFR 96; Glucose 128 mg/dL (70-105); Potassium 4.3 mmol/L (3.5-5.1); Sodium 135 mmol/L (136-145)
[2022-05-02] MEDS: Furosemide 40 MG TAB PO SCH ×2 (09:03→14:41)
[2022-05-02] MEDS: glipiZIDE 5 MG TAB PO SCH ×2 (09:03→16:39)
[2022-05-02] MEDS: Potassium Bicarbonate/Cit Ac 20 MEQ TAB PO SCH (09:03)
[2022-05-02] MEDS: Digoxin 0.25 MG TAB PO SCH (09:03)
[2022-05-02] MEDS: Carvedilol 3.125 MG TAB PO SCH ×2 (09:04→19:46)
[2022-05-02] MEDS: Metolazone 5 MG TAB PO SCH (09:04)
[2022-05-02] MEDS: diphenhydrAMINE 25 MG CAP PO PRN ×2 (09:11→19:44)
[2022-05-02] MEDS: Morphine 2 MG/ML VIAL SLOW IVP PRN ×3 (09:11→23:48)
[2022-05-02] MEDS: HumaLOG 300 UNITS/3 ML VIAL SC PRN (11:24)
[2022-05-02] MEDS ORDERED: hydrOXYzine 25 MG TAB PO SCH (13:00)
[2022-05-03] MEDS: Potassium Bicarbonate/Cit Ac 20 MEQ TAB PO SCH (08:20)
[2022-05-03] MEDS: Digoxin 0.25 MG TAB PO SCH (08:21)
[2022-05-03] MEDS: glipiZIDE 5 MG TAB PO SCH ×2 (08:21→16:36)
[2022-05-03] MEDS: Bumetanide 1 MG TAB PO SCH ×2 (08:21→16:36)
[2022-05-03] MEDS: Carvedilol 3.125 MG TAB PO SCH ×2 (08:21→20:50)
[2022-05-03] MEDS: Metolazone 5 MG TAB PO SCH (08:22)
[2022-05-03] MEDS: HumaLOG 300 UNITS/3 ML VIAL SC PRN (13:09)
[2022-05-03] MEDS: Morphine 2 MG/ML VIAL SLOW IVP PRN (20:50)
[2022-05-03] MEDS: Acetaminophen 325 MG TAB PO PRN (21:02)
[2022-05-04 08:17] VITALS: TEMP 98.3
[2022-05-04] MEDS: Bumetanide 1 MG TAB PO SCH ×2 (09:01→15:56)
[2022-05-04] MEDS: Potassium Bicarbonate/Cit Ac 20 MEQ TAB PO SCH (09:01)
[2022-05-04] MEDS: glipiZIDE 5 MG TAB PO SCH ×2 (09:01→15:56)
[2022-05-04] MEDS: Acetaminophen 325 MG TAB PO PRN (09:09)
[2022-05-04] MEDS: Digoxin 0.25 MG TAB PO SCH (10:00)
[2022-05-04] MEDS: Metolazone 5 MG TAB PO SCH (10:00)
[2022-05-04] MEDS: Carvedilol 3.125 MG TAB PO SCH (10:00)
[2022-05-04] MEDS: HumaLOG 300 UNITS/3 ML VIAL SC PRN (12:32)
[2022-05-04 15:39] VITALS: BP 106/62
== END 2022-05-04 18:16 | disposition home or self-care (01) | DRG 292 ==
LOC: ERS 18:46 → ERHOLD 04-20 00:17 → 2NO 04-20 16:43
PROVIDERS: ADMIT Student in an Organized Health Care Education/Training Program; ATTEND Internal Medicine
DX: I50.23 Acute on chronic systolic (congestive) heart failure (principal); E87.1 Hypo-osmolality and hyponatremia; E87.20 Acidosis, unspecified; N17.9 Acute kidney failure, unspecified; I42.8 Other cardiomyopathies; D72.829 Elevated white blood cell count, unspecified; N18.9 Chronic kidney disease, unspecified; E11.65 Type 2 diabetes mellitus with hyperglycemia; E11.22 Type 2 diabetes mellitus with diabetic chronic kidney disease; Z20.822 Contact with and (suspected) exposure to COVID-19; Z88.8 Allergy status to other drugs, medicaments and biological substances; Z79.84 Long term (current) use of oral hypoglycemic drugs; Z95.810 Presence of automatic (implantable) cardiac defibrillator; Z98.890 Other specified postprocedural states; Z91.013 Allergy to seafood; Z79.51 Long term (current) use of inhaled steroids; Z79.01 Long term (current) use of anticoagulants; Z79.899 Other long term (current) drug therapy
CPT/HCPCS: 36415; 36416; 71045; 76705; 80048; 80053; 80074; 81003; 81015; 83605; 83690; 83735; 83880; 84484; 85025; 85027; 85610; 85730; 87811; 93005; 93798; 96374; 96375; 97139; J1250; J1265; J1650; J1815; J1940; J2272; J2405; J3475; J7070; Q0162

== ENCOUNTER 2022-05-29 19:36 | Inpatient (IN) | payer BC, SELFPAY ==
[2022-05-29 20:57] LABS: #Basophils 0.1 thou/uL (0.0-0.2); #Eosinphils 0.2 thou/uL (0.0-0.7); #Lymphocytes 2.4 thou/uL (1.20-3.40); #Monocytes 0.6 thou/uL (0.11-0.59); #Neutrophils 5.7 thou/uL (1.40-6.50); %Basophils 0.6 % (0.0-1.0); %Eosinophils 2.1 % (0.0-10.0); %Lymphocytes 26.5 % (21.0-51.0); Hemoglobin 14.8 g/dL (14.0-18.0); Mean Corpuscular HGB CONC 31.4 g/dL (32.0-36.0); Mean Corpuscular Hemoglobin 27.3 pg (27.0-31.0); Mean Corpuscular Volume 86.9 fl (78.0-98.0); Platelet Count 241 10x3/uL (130-400); RBC Distribution Width 14.5 % (11.5-14.5); Red Blood Cell (RBC) Count 5.42 mill/uL (4.70-6.10)
[2022-05-29 21:16] LABS: ALT (SGPT) 110 U/L (8-55); AST (SGOT) 32 U/L (5-34); Albumin 4.2 g/dL (3.5-5.0); Alkaline Phosphatase 291 U/L (40-110); Anion Gap 17 mmol/L (10-20); BUN (Urea Nitrogen) 25 mg/dL (8.9-20.6); Bilirubin, Total 1.6 mg/dL (0.2-1.2); Calc. Creatinine Clearance 0 mL/min (70-130); Calcium 9.2 mg/dL (7.8-10.44); Carbon Dioxide 22 mmol/L (22-29); Chloride 104 mmol/L (98-107); Estimated GFR 56; Globulin 2.7 g/dL (2.4-3.5); Glucose 117 mg/dL (70-105); Potassium 4.6 mmol/L (3.5-5.1); Protein, Total 6.9 g/dL (6.0-8.3); Sodium 138 mmol/L (136-145)
[2022-05-29] MEDS ORDERED: Ondansetron PF 4 MG/2 ML Vial ONE (21:30)
[2022-05-29 21:38] LABS: CKMB 7.7 ng/mL (0-6.6)
[2022-05-29] MEDS ORDERED: Aspirin Chewable 81 MG TAB ONE (22:36)
[2022-05-29] MEDS ORDERED: Furosemide 40 MG/4 ML VIAL ONE ×2 (22:36→23:14)
[2022-05-29] MEDS ORDERED: Ondansetron PF 4 MG/2 ML Vial IVP PRN (23:51)
[2022-05-29] MEDS ORDERED: Bisacodyl 5 MG TAB PO PRN (23:51)
[2022-05-29] MEDS ORDERED: Acetaminophen 325 MG TAB PO PRN (23:51)
[2022-05-29] MEDS ORDERED: Bisacodyl 10 MG SUPP PR PRN (23:51)
[2022-05-29] MEDS ORDERED: Senokot S 8.6-50 MG TAB PO PRN (23:51)
[2022-05-30] MEDS ORDERED: HumaLOG 300 UNITS/3 ML VIAL SC PRN (00:03)
[2022-05-30] MEDS ORDERED: Dextrose 5% in Water 1,000 ML IV PRN (00:03)
[2022-05-30] MEDS ORDERED: Dextrose 50% Abboject 50 ML SYRINGE SLOW IVP PRN (00:03)
[2022-05-30 01:02] LABS: SARS-CoV-2 NAA Rapid Test Not Detected (NotDetected)
[2022-05-30 02:10] LABS: Troponin I 0.194 ng/mL (< 0.028)
[2022-05-30 04:59] LABS: #Basophils 0.1 thou/uL (0.0-0.2); #Eosinphils 0.1 thou/uL (0.0-0.7); #Lymphocytes 3.1 thou/uL (1.20-3.40); #Monocytes 0.6 thou/uL (0.11-0.59); #Neutrophils 5.8 thou/uL (1.40-6.50); %Basophils 0.7 % (0.0-1.0); %Eosinophils 1.5 % (0.0-10.0); %Lymphocytes 32.3 % (21.0-51.0); %Neutrophils 59.5 % (42.0-75.0); Hemoglobin 14.2 g/dL (14.0-18.0); Mean Corpuscular HGB CONC 32.2 g/dL (32.0-36.0); Mean Corpuscular Hemoglobin 27.9 pg (27.0-31.0); Mean Corpuscular Volume 86.7 fl (78.0-98.0); Platelet Count 221 10x3/uL (130-400); RBC Distribution Width 14.5 % (11.5-14.5); Red Blood Cell (RBC) Count 5.08 mill/uL (4.70-6.10); White Blood Cell (WBC) Count 9.7 10x3/uL (4.8-10.8)
[2022-05-30 05:17] LABS: ALT (SGPT) 94 U/L (8-55); AST (SGOT) 28 U/L (5-34); Albumin 3.8 g/dL (3.5-5.0); Alkaline Phosphatase 237 U/L (40-110); Anion Gap 13 mmol/L (10-20); BUN (Urea Nitrogen) 25 mg/dL (8.9-20.6); Bilirubin, Direct 0.8 mg/dL (0.1-0.3); Bilirubin, Total 1.8 mg/dL (0.2-1.2); Calc. Creatinine Clearance 0 mL/min (70-130); Calcium 9.2 mg/dL (7.8-10.44); Carbon Dioxide 25 mmol/L (22-29); Chloride 103 mmol/L (98-107); Estimated GFR 69; Glucose 112 mg/dL (70-105); Potassium 4.2 mmol/L (3.5-5.1); Protein, Total 6.6 g/dL (6.0-8.3); Sodium 137 mmol/L (136-145)
[2022-05-30 05:24] LABS: Troponin I 0.182 ng/mL (< 0.028)
[2022-05-30 05:38] LABS: Hep C IgG Ab Non-Reactive (NonReactive); Hep C Index 0.11 S/CO (0-0.79)
[2022-05-30] MEDS ORDERED: Furosemide 40 MG/4 ML VIAL ONE (05:58)
[2022-05-30] MEDS: Furosemide 40 MG/4 ML VIAL SLOW IVP SCH ×2 (06:01→14:13)
[2022-05-30] MEDS ORDERED: Aspirin Chewable 81 MG TAB ONE (08:34)
[2022-05-30] MEDS: Heparin 5,000 UNITS/ML VIAL SC SCH ×3 (08:44→20:06)
[2022-05-30] MEDS: Aspirin Chewable 81 MG TAB PO SCH (08:46)
[2022-05-30 11:43] VITALS: BMI 25.2
[2022-05-30] MEDS ORDERED: HYDROcodone/Acetaminophen 5/325 mg Tablet PO PRN (16:18)
[2022-05-30] MEDS: glipiZIDE 5 MG TAB PO SCH (16:58)
[2022-05-30] MEDS: HumaLOG 300 UNITS/3 ML VIAL SC PRN (17:53)
[2022-05-30] MEDS ORDERED: DOBUTamine 500 mg/250 ml 250 ML IVPB SCH (18:15)
[2022-05-30] MEDS ORDERED: Furosemide 40 MG/4 ML VIAL SLOW IVP SCH (18:15)
[2022-05-30] MEDS: DOBUTamine 500 mg/250 ml 500 MG in Premix Bag 1 BAG IVPB SCH (19:07)
[2022-05-30] MEDS: Carvedilol 3.125 MG TAB PO SCH (20:05)
[2022-05-30] MEDS ORDERED: Morphine 2 MG/ML VIAL SLOW IVP PRN (20:55)
[2022-05-31] MEDS: Furosemide 40 MG/4 ML VIAL SLOW IVP SCH ×2 (06:10→14:01)
[2022-05-31 07:53] LABS: ALT (SGPT) 72 U/L (8-55); AST (SGOT) 26 U/L (5-34); Albumin 3.5 g/dL (3.5-5.0); Alkaline Phosphatase 253 U/L (40-110); Anion Gap 12 mmol/L (10-20); BUN (Urea Nitrogen) 26 mg/dL (8.9-20.6); Bilirubin, Total 1.7 mg/dL (0.2-1.2); Calc. Creatinine Clearance 81 mL/min (70-130); Calcium 8.7 mg/dL (7.8-10.44); Carbon Dioxide 27 mmol/L (22-29); Chloride 101 mmol/L (98-107); Estimated GFR 75; Globulin 2.7 g/dL (2.4-3.5); Glucose 157 mg/dL (70-105); Magnesium 1.9 mg/dL (1.6-2.6); Potassium 3.4 mmol/L (3.5-5.1); Protein, Total 6.2 g/dL (6.0-8.3); Sodium 137 mmol/L (136-145)
[2022-05-31] MEDS ORDERED: Potassium Chloride 20 MEQ TAB PO SCH (08:30)
[2022-05-31] MEDS: Potassium Bicarbonate/Cit Ac 20 MEQ TAB PO SCH (09:13)
[2022-05-31] MEDS: Aspirin Chewable 81 MG TAB PO SCH (09:13)
[2022-05-31] MEDS: Digoxin 0.25 MG TAB PO SCH (09:13)
[2022-05-31] MEDS: Heparin 5,000 UNITS/ML VIAL SC SCH ×3 (09:13→20:11)
[2022-05-31] MEDS: Carvedilol 3.125 MG TAB PO SCH ×3 (09:13→20:15)
[2022-05-31] MEDS: glipiZIDE 5 MG TAB PO SCH ×2 (09:14→17:52)
[2022-05-31] MEDS: HumaLOG 300 UNITS/3 ML VIAL SC PRN ×2 (11:46→17:53)
[2022-05-31] MEDS: DOBUTamine 500 mg/250 ml 500 MG in Premix Bag 1 BAG IVPB SCH (14:01)
[2022-05-31] MEDS: Morphine 2 MG/ML VIAL SLOW IVP PRN (17:52)
[2022-06-01 04:23] LABS: #Eosinphils 0.6 thou/uL (0.0-0.7); #Lymphocytes 1.3 thou/uL (1.20-3.40); #Monocytes 0.6 thou/uL (0.11-0.59); #Neutrophils 6.3 thou/uL (1.40-6.50); %Basophils 0.2 % (0.0-1.0); %Eosinophils 6.4 % (0.0-10.0); %Lymphocytes 14.9 % (21.0-51.0); %Monocytes 6.8 % (0.0-10.0); %Neutrophils 71.6 % (42.0-75.0); Hemoglobin 14.5 g/dL (14.0-18.0); Mean Corpuscular HGB CONC 32.6 g/dL (32.0-36.0); Mean Corpuscular Hemoglobin 28.4 pg (27.0-31.0); Mean Corpuscular Volume 87.2 fl (78.0-98.0); Mean Platelet Volume 8.1 fL (7.4-10.4); Platelet Count 221 10x3/uL (130-400); RBC Distribution Width 14.8 % (11.5-14.5); Red Blood Cell (RBC) Count 5.09 mill/uL (4.70-6.10); White Blood Cell (WBC) Count 8.8 10x3/uL (4.8-10.8)
[2022-06-01 04:46] LABS: ALT (SGPT) 58 U/L (8-55); AST (SGOT) 22 U/L (5-34); Albumin 3.1 g/dL (3.5-5.0); Alkaline Phosphatase 259 U/L (40-110); Anion Gap 13 mmol/L (10-20); BUN (Urea Nitrogen) 23 mg/dL (8.9-20.6); Bilirubin, Total 1.4 mg/dL (0.2-1.2); Calc. Creatinine Clearance 86 mL/min (70-130); Calcium 8.7 mg/dL (7.8-10.44); Carbon Dioxide 26 mmol/L (22-29); Chloride 102 mmol/L (98-107); Estimated GFR 82; Globulin 2.7 g/dL (2.4-3.5); Glucose 95 mg/dL (70-105); Magnesium 1.9 mg/dL (1.6-2.6); Potassium 3.2 mmol/L (3.5-5.1); Protein, Total 5.8 g/dL (6.0-8.3); Sodium 138 mmol/L (136-145)
[2022-06-01] MEDS: Furosemide 40 MG/4 ML VIAL SLOW IVP SCH ×2 (06:01→13:15)
[2022-06-01] MEDS: Carvedilol 3.125 MG TAB PO SCH ×2 (10:01→21:00)
[2022-06-01] MEDS: Aspirin Chewable 81 MG TAB PO SCH (10:01)
[2022-06-01] MEDS: Digoxin 0.25 MG TAB PO SCH (10:01)
[2022-06-01] MEDS: glipiZIDE 5 MG TAB PO SCH ×2 (10:01→16:03)
[2022-06-01] MEDS: Potassium Bicarbonate/Cit Ac 20 MEQ TAB PO SCH (10:01)
[2022-06-01] MEDS: Heparin 5,000 UNITS/ML VIAL SC SCH ×3 (10:01→20:53)
[2022-06-01] MEDS: DOBUTamine 500 mg/250 ml 500 MG in Premix Bag 1 BAG IVPB SCH (10:26)
[2022-06-01] MEDS ORDERED: Spironolactone 25 MG TAB PO SCH (10:45)
[2022-06-01] MEDS ORDERED: Potassium Chloride 20 MEQ TAB PO SCH (11:30)
[2022-06-01] MEDS: Morphine 2 MG/ML VIAL SLOW IVP PRN (13:15)
[2022-06-01] MEDS: HumaLOG 300 UNITS/3 ML VIAL SC PRN (17:27)
[2022-06-02] MEDS: Furosemide 40 MG/4 ML VIAL SLOW IVP SCH ×2 (05:44→14:10)
[2022-06-02] MEDS: DOBUTamine 500 mg/250 ml 500 MG in Premix Bag 1 BAG IVPB SCH (06:18)
[2022-06-02] MEDS: Aspirin Chewable 81 MG TAB PO SCH (08:06)
[2022-06-02] MEDS: glipiZIDE 5 MG TAB PO SCH ×2 (08:06→15:36)
[2022-06-02] MEDS: Spironolactone 25 MG TAB PO SCH (08:06)
[2022-06-02] MEDS: Potassium Bicarbonate/Cit Ac 20 MEQ TAB PO SCH (08:06)
[2022-06-02] MEDS: Carvedilol 3.125 MG TAB PO SCH ×2 (08:07→21:42)
[2022-06-02] MEDS: Digoxin 0.25 MG TAB PO SCH (08:07)
[2022-06-02] MEDS: Heparin 5,000 UNITS/ML VIAL SC SCH ×3 (08:18→21:42)
[2022-06-02 08:49] LABS: Anion Gap 13 mmol/L (10-20); BUN (Urea Nitrogen) 21 mg/dL (8.9-20.6); Calc. Creatinine Clearance 111 mL/min (70-130); Carbon Dioxide 23 mmol/L (22-29); Chloride 104 mmol/L (98-107); Potassium 4.1 mmol/L (3.5-5.1); Sodium 136 mmol/L (136-145)
[2022-06-02 08:50] LABS: Calcium 8.9 mg/dL (7.8-10.44); Estimated GFR 95; Glucose 105 mg/dL (70-105)
[2022-06-02] MEDS ORDERED: Morphine 2 MG/ML VIAL SLOW IVP SCH (22:45)
[2022-06-03] MEDS ORDERED: Phentolamine Mesylate 5 MG VIAL SC SCH (00:30)
[2022-06-03] MEDS ORDERED: Phentolamine Mesylate 5 MG in Sodium Chloride 0.9% 9 ML SC SCH (00:45)
[2022-06-03] MEDS: Furosemide 40 MG/4 ML VIAL SLOW IVP SCH ×2 (05:19→15:08)
[2022-06-03] MEDS: DOBUTamine 500 mg/250 ml 500 MG in Premix Bag 1 BAG IVPB SCH (05:28)
[2022-06-03] MEDS: Ivabradine 5 MG TAB PO SCH ×2 (09:03→21:26)
[2022-06-03] MEDS: Digoxin 0.125 MG TAB PO SCH (09:04)
[2022-06-03] MEDS: Spironolactone 25 MG TAB PO SCH (09:05)
[2022-06-03] MEDS: Aspirin Chewable 81 MG TAB PO SCH (09:05)
[2022-06-03] MEDS: Potassium Bicarbonate/Cit Ac 20 MEQ TAB PO SCH (09:06)
[2022-06-03] MEDS: glipiZIDE 5 MG TAB PO SCH ×2 (09:06→18:46)
[2022-06-03] MEDS: Heparin 5,000 UNITS/ML VIAL SC SCH ×3 (09:06→21:26)
[2022-06-03] MEDS: HumaLOG 300 UNITS/3 ML VIAL SC PRN (12:59)
[2022-06-03 14:18] LABS: Anion Gap 14 mmol/L (10-20); BUN (Urea Nitrogen) 19 mg/dL (8.9-20.6); Calc. Creatinine Clearance 42 mL/min (70-130); Calcium 9.1 mg/dL (7.8-10.44); Carbon Dioxide 22 mmol/L (22-29); Chloride 103 mmol/L (98-107); Estimated GFR 78; Glucose 177 mg/dL (70-105); Potassium 4.3 mmol/L (3.5-5.1); Sodium 135 mmol/L (136-145)
[2022-06-03] MEDS: Morphine 2 MG/ML VIAL SLOW IVP PRN ×2 (15:12→19:44)
[2022-06-04] MEDS ORDERED: Nitroglycerin 2% Ointment 1 INCH/1 GM Packet TOP SCH (03:30)
[2022-06-04] MEDS ORDERED: Nitroglycerin 2% Ointment 1 INCH/1 GM Packet TOP PRN (04:30)
[2022-06-04 05:54] LABS: Anion Gap 11 mmol/L (10-20); BUN (Urea Nitrogen) 23 mg/dL (8.9-20.6); Calc. Creatinine Clearance 42 mL/min (70-130); Calcium 8.9 mg/dL (7.8-10.44); Carbon Dioxide 25 mmol/L (22-29); Chloride 102 mmol/L (98-107); Estimated GFR 78; Glucose 138 mg/dL (70-105); Magnesium 2.1 mg/dL (1.6-2.6); Potassium 4.2 mmol/L (3.5-5.1); Sodium 134 mmol/L (136-145)
[2022-06-04] MEDS: Furosemide 40 MG/4 ML VIAL SLOW IVP SCH ×2 (06:38→14:22)
[2022-06-04] MEDS: Morphine 2 MG/ML VIAL SLOW IVP PRN ×3 (06:53→20:51)
[2022-06-04] MEDS: Digoxin 0.125 MG TAB PO SCH (08:25)
[2022-06-04] MEDS: Spironolactone 25 MG TAB PO SCH (08:25)
[2022-06-04] MEDS: Aspirin Chewable 81 MG TAB PO SCH (08:26)
[2022-06-04] MEDS: glipiZIDE 5 MG TAB PO SCH ×2 (08:26→14:41)
[2022-06-04] MEDS: Potassium Bicarbonate/Cit Ac 20 MEQ TAB PO SCH (08:26)
[2022-06-04] MEDS: Heparin 5,000 UNITS/ML VIAL SC SCH ×3 (08:26→20:51)
[2022-06-04] MEDS: Ivabradine 5 MG TAB PO SCH ×2 (08:28→20:50)
[2022-06-04] MEDS: DOBUTamine 500 mg/250 ml 500 MG in Premix Bag 1 BAG IVPB SCH (09:58)
[2022-06-04] MEDS: HumaLOG 300 UNITS/3 ML VIAL SC PRN (18:58)
[2022-06-04] MEDS: Clotrimazole 1% Cream 15 GM TUBE TOP SCH (20:50)
[2022-06-05 04:59] LABS: Anion Gap 14 mmol/L (10-20); BUN (Urea Nitrogen) 23 mg/dL (8.9-20.6); Calc. Creatinine Clearance 102 mL/min (70-130); Calcium 8.9 mg/dL (7.8-10.44); Carbon Dioxide 22 mmol/L (22-29); Chloride 103 mmol/L (98-107); Estimated GFR 89; Glucose 129 mg/dL (70-105); Magnesium 2.4 mg/dL (1.6-2.6); Potassium 4.5 mmol/L (3.5-5.1); Sodium 134 mmol/L (136-145)
[2022-06-05] MEDS: Furosemide 40 MG/4 ML VIAL SLOW IVP SCH (05:25)
[2022-06-05] MEDS: Morphine 2 MG/ML VIAL SLOW IVP PRN ×2 (05:25→10:54)
[2022-06-05] MEDS ORDERED: Spironolactone 25 MG TAB PO SCH (08:00)
[2022-06-05] MEDS: Aspirin Chewable 81 MG TAB PO SCH (08:19)
[2022-06-05] MEDS: Ivabradine 5 MG TAB PO SCH (08:19)
[2022-06-05] MEDS: Heparin 5,000 UNITS/ML VIAL SC SCH ×2 (08:23→15:36)
[2022-06-05] MEDS: Potassium Bicarbonate/Cit Ac 20 MEQ TAB PO SCH (08:23)
[2022-06-05] MEDS: Digoxin 0.125 MG TAB PO SCH (08:23)
[2022-06-05] MEDS: glipiZIDE 5 MG TAB PO SCH ×2 (08:23→18:21)
[2022-06-05] MEDS: Clotrimazole 1% Cream 15 GM TUBE TOP SCH (08:27)
[2022-06-05] MEDS ORDERED: DOBUTamine 500 mg/250 ml 500 MG in Premix Bag 1 BAG IVPB SCH (09:30)
[2022-06-05] MEDS ORDERED: Ketoconazole 2% Cream 15 gm Tube TOP SCH ×2 (13:00→21:00)
[2022-06-05] MEDS ORDERED: Furosemide 40 MG TAB PO SCH (14:00)
[2022-06-05] MEDS ORDERED: Carvedilol 3.125 MG TAB PO SCH (17:00)
[2022-06-05 18:55] VITALS: BP 110/65; TEMP 97.1
== END 2022-06-05 19:03 | disposition home or self-care (01) | DRG 291 ==
LOC: ERS 19:36 → ERHOLD 22:59 → 2NO 05-30 11:17
PROVIDERS: ADMIT Internal Medicine; ATTEND Internal Medicine
PROC: 3E033XZ Introduction of Vasopressor into Peripheral Vein, Percutaneous Approach (ICD-10-PCS; principal; 2022-05-30)
DX: I11.0 Hypertensive heart disease with heart failure (principal); I50.23 Acute on chronic systolic (congestive) heart failure; N17.9 Acute kidney failure, unspecified; I82.611 Acute embolism and thrombosis of superficial veins of right upper extremity; T82.868A Thrombosis due to vascular prosthetic devices, implants and grafts, initial encounter; I47.20 Ventricular tachycardia, unspecified; I42.0 Dilated cardiomyopathy; Z20.822 Contact with and (suspected) exposure to COVID-19; I25.5 Ischemic cardiomyopathy; R20.0 Anesthesia of skin; I08.1 Rheumatic disorders of both mitral and tricuspid valves; I95.89 Other hypotension; Y84.8 Other medical procedures as the cause of abnormal reaction of the patient, or of later complication, without mention of misadventure at the time of the procedure; Z95.810 Presence of automatic (implantable) cardiac defibrillator; Z91.013 Allergy to seafood; Z88.8 Allergy status to other drugs, medicaments and biological substances; Z91.018 Allergy to other foods; Z98.0 Intestinal bypass and anastomosis status; Z79.899 Other long term (current) drug therapy; Z79.84 Long term (current) use of oral hypoglycemic drugs
CPT/HCPCS: 36415; 36416; 70450; 71045; 76705; 80048; 80053; 80076; 82553; 83036; 83735; 83880; 84443; 84484; 85025; 86803; 87811; 93005; 93306; 93798; 96374; 97139; J1250; J1644; J1815; J1940; J2272; J2405; J2760; U0002

== ENCOUNTER 2022-06-20 01:26 | Inpatient (IN) | payer BC ==
[2022-06-20 02:00] LABS: #Eosinphils 0.2 thou/uL (0.0-0.7); #Lymphocytes 2.3 thou/uL (1.20-3.40); #Monocytes 0.5 thou/uL (0.11-0.59); #Neutrophils 6.5 thou/uL (1.40-6.50); %Basophils 0.5 % (0.0-1.0); %Eosinophils 1.7 % (0.0-10.0); %Lymphocytes 24.4 % (21.0-51.0); %Monocytes 5.1 % (0.0-10.0); %Neutrophils 68.3 % (42.0-75.0); Hemoglobin 14.9 g/dL (14.0-18.0); Mean Corpuscular HGB CONC 32.4 g/dL (32.0-36.0); Mean Corpuscular Hemoglobin 28.3 pg (27.0-31.0); Mean Corpuscular Volume 87.5 fl (78.0-98.0); Mean Platelet Volume 8.4 fL (7.4-10.4); Platelet Count 334 10x3/uL (130-400); RBC Distribution Width 15.3 % (11.5-14.5); Red Blood Cell (RBC) Count 5.27 mill/uL (4.70-6.10); White Blood Cell (WBC) Count 9.5 10x3/uL (4.8-10.8)
[2022-06-20 02:18] LABS: ALT (SGPT) 14 U/L (8-55); AST (SGOT) 17 U/L (5-34); Albumin 4.5 g/dL (3.5-5.0); Alkaline Phosphatase 164 U/L (40-110); Anion Gap 17 mmol/L (10-20); BUN (Urea Nitrogen) 25 mg/dL (8.9-20.6); Bilirubin, Total 1.1 mg/dL (0.2-1.2); Calc. Creatinine Clearance 0 mL/min (70-130); Calcium 9.8 mg/dL (7.8-10.44); Carbon Dioxide 24 mmol/L (22-29); Chloride 102 mmol/L (98-107); Estimated GFR 59; Globulin 3.4 g/dL (2.4-3.5); Glucose 133 mg/dL (70-105); Potassium 4.6 mmol/L (3.5-5.1); Protein, Total 7.9 g/dL (6.0-8.3); Sodium 138 mmol/L (136-145)
[2022-06-20 05:23] LABS: SARS-CoV-2 NAA Rapid Test Not Detected (NotDetected)
[2022-06-20] MEDS ORDERED: Metolazone 5 MG TAB PO SCH (08:45)
[2022-06-20] MEDS ORDERED: Furosemide 40 MG/4 ML VIAL SLOW IVP SCH (08:45)
[2022-06-20 09:31] LABS: Troponin I 0.011 ng/mL (< 0.028)
[2022-06-20] MEDS ORDERED: DOBUTamine 500 mg/250 ml 250 ML ONE (09:56)
[2022-06-20] MEDS ORDERED: Furosemide 40 MG/4 ML VIAL ONE ×2 (09:56→15:08)
[2022-06-20] MEDS ORDERED: Digoxin 0.25 MG TAB ONE (09:56)
[2022-06-20] MEDS: Digoxin 0.25 MG TAB PO SCH (10:03)
[2022-06-20] MEDS: DOBUTamine 500 mg/250 ml 250 ML IVPB SCH (10:33)
[2022-06-20 12:24] LABS: Troponin I Less than 0.010 ng/mL (< 0.028)
[2022-06-20] MEDS: Furosemide 40 MG/4 ML VIAL SLOW IVP SCH (15:09)
[2022-06-20] MEDS ORDERED: Carvedilol 3.125 MG TAB PO SCH (17:00)
[2022-06-20] MEDS ORDERED: metFORMIN 500 MG TAB PO SCH (17:00)
[2022-06-20] MEDS: Acetaminophen 325 MG TAB PO PRN (21:15)
[2022-06-21] MEDS: Furosemide 40 MG/4 ML VIAL SLOW IVP SCH ×2 (05:05→16:36)
[2022-06-21 05:55] LABS: Anion Gap 18 mmol/L (10-20); BUN (Urea Nitrogen) 19 mg/dL (8.9-20.6); Calc. Creatinine Clearance 88 mL/min (70-130); Carbon Dioxide 20 mmol/L (22-29); Chloride 102 mmol/L (98-107); Estimated GFR 76; Glucose 169 mg/dL (70-105); Potassium 4.2 mmol/L (3.5-5.1); Sodium 136 mmol/L (136-145)
[2022-06-21 07:34] VITALS: BMI 23.7
[2022-06-21] MEDS ORDERED: Spironolactone 25 MG TAB PO SCH (08:00)
[2022-06-21] MEDS ORDERED: Metolazone 5 MG TAB PO SCH (08:30)
[2022-06-21] MEDS: DOBUTamine 500 mg/250 ml 250 ML IVPB SCH (08:47)
[2022-06-21] MEDS: Digoxin 0.25 MG TAB PO SCH (08:50)
[2022-06-21] MEDS: Carvedilol 3.125 MG TAB PO SCH ×2 (08:50→16:37)
[2022-06-21] MEDS: glipiZIDE 5 MG TAB PO SCH ×2 (08:50→16:37)
[2022-06-21] MEDS ORDERED: Carvedilol 3.125 MG TAB PO SCH (18:00)
[2022-06-21] MEDS: Ivabradine 5 MG TAB PO SCH (20:48)
[2022-06-21] MEDS: Acetaminophen 325 MG TAB PO PRN (20:48)
[2022-06-22] MEDS: Furosemide 40 MG/4 ML VIAL SLOW IVP SCH ×2 (05:14→13:22)
[2022-06-22] MEDS: Digoxin 0.25 MG TAB PO SCH (09:29)
[2022-06-22] MEDS: Ivabradine 5 MG TAB PO SCH ×2 (09:30→20:14)
[2022-06-22] MEDS: glipiZIDE 5 MG TAB PO SCH ×2 (09:30→18:11)
[2022-06-22] MEDS: Carvedilol 3.125 MG TAB PO SCH ×2 (09:30→18:11)
[2022-06-22] MEDS: DOBUTamine 500 mg/250 ml 250 ML IVPB SCH (09:55)
[2022-06-22 10:47] LABS: Anion Gap 18 mmol/L (10-20); BUN (Urea Nitrogen) 25 mg/dL (8.9-20.6); Calc. Creatinine Clearance 75 mL/min (70-130); Carbon Dioxide 23 mmol/L (22-29); Chloride 100 mmol/L (98-107); Estimated GFR 67; Glucose 169 mg/dL (70-105); Potassium 3.7 mmol/L (3.5-5.1); Sodium 137 mmol/L (136-145)
[2022-06-23] MEDS: DOBUTamine 500 mg/250 ml 250 ML IVPB SCH (06:39)
[2022-06-23 08:10] VITALS: TEMP 98
[2022-06-23] MEDS: Digoxin 0.25 MG TAB PO SCH (09:32)
[2022-06-23] MEDS: glipiZIDE 5 MG TAB PO SCH ×2 (09:32→16:50)
[2022-06-23] MEDS: Carvedilol 3.125 MG TAB PO SCH ×2 (09:33→16:49)
[2022-06-23] MEDS: Ivabradine 5 MG TAB PO SCH (10:22)
[2022-06-23 12:49] VITALS: BP 114/63
== END 2022-06-23 16:57 | disposition short-term general hospital (02) | DRG 292 ==
LOC: ERS 01:26 → ERHOLD 09:13 → OBSVTOIN 13:13 → 2NO 17:29
PROVIDERS: ADMIT Internal Medicine; ATTEND Internal Medicine
PROC: 3E033XZ Introduction of Vasopressor into Peripheral Vein, Percutaneous Approach (ICD-10-PCS; principal; 2022-06-20)
DX: I50.43 Acute on chronic combined systolic (congestive) and diastolic (congestive) heart failure (principal); I42.0 Dilated cardiomyopathy; Z20.822 Contact with and (suspected) exposure to COVID-19; N18.31 Chronic kidney disease, stage 3a; E11.22 Type 2 diabetes mellitus with diabetic chronic kidney disease; Z76.82 Awaiting organ transplant status; Z91.013 Allergy to seafood; Z88.8 Allergy status to other drugs, medicaments and biological substances; Z91.018 Allergy to other foods; Z79.899 Other long term (current) drug therapy; Z79.84 Long term (current) use of oral hypoglycemic drugs; Z98.890 Other specified postprocedural states; Z95.810 Presence of automatic (implantable) cardiac defibrillator
CPT/HCPCS: 36415; 36416; 71045; 80048; 80053; 83880; 84484; 85025; 93005; 93798; 94760; 96372; 96374; G0378; J1250; J1650; J1940; U0002

== ENCOUNTER 2023-04-20 18:57 | Inpatient (IN) | payer BC ==
[2023-04-20 20:07] LABS: #Monocytes 0.5 thou/uL (0.11-0.59); #Neutrophils 8.9 thou/uL (1.40-6.50); %Basophils 0.4 % (0.0-1.0); %Eosinophils 0.2 % (0.0-10.0); %Monocytes 4.3 % (0.0-10.0); %Neutrophils 78.8 % (42.0-75.0); Mean Corpuscular HGB CONC 32.6 g/dL (32.0-36.0); Mean Corpuscular Hemoglobin 27.1 pg (27.0-31.0); Mean Platelet Volume 10.2 fL (7.4-10.4); Platelet Count 256 10x3/uL (130-400); RBC Distribution Width 14.1 % (11.5-14.5); Red Blood Cell (RBC) Count 5.54 mill/uL (4.70-6.10); White Blood Cell (WBC) Count 11.2 10x3/uL (4.8-10.8)
[2023-04-20 20:31] LABS: ALT (SGPT) 94 U/L (8-55); AST (SGOT) 49 U/L (5-34); Alkaline Phosphatase 152 U/L (40-110); Anion Gap 14 mmol/L (10-20); BUN (Urea Nitrogen) 22 mg/dL (8.9-20.6); Bilirubin, Total 1.5 mg/dL (0.2-1.2); Calc. Creatinine Clearance 0 mL/min (70-130); Carbon Dioxide 24 mmol/L (22-29); Chloride 101 mmol/L (98-107); Estimated GFR 53; Globulin 2.7 g/dL (2.4-3.5); Glucose 278 mg/dL (70-105); Potassium 4.4 mmol/L (3.5-5.1); Protein, Total 6.7 g/dL (6.0-8.3); Sodium 135 mmol/L (136-145)
[2023-04-20 20:34] LABS: Troponin I 0.023 ng/mL (< 0.028)
[2023-04-20] MEDS ORDERED: Furosemide 40 MG (4 mL) VIAL ONE (21:09)
[2023-04-21] MEDS ORDERED: Acetaminophen 325 MG TAB PO PRN (00:23)
[2023-04-21] MEDS ORDERED: Ondansetron ODT 4 MG TAB PO PRN (00:23)
[2023-04-21] MEDS ORDERED: Dextrose 50% Abboject 50 ML SYRINGE SLOW IVP PRN (00:23)
[2023-04-21] MEDS ORDERED: Dextrose 5% in Water 1,000 ML IV PRN (00:23)
[2023-04-21] MEDS ORDERED: Glucagon 1 MG/ML KIT IM PRN (00:23)
[2023-04-21] MEDS ORDERED: HumaLOG 300 UNITS/3 ML VIAL SC PRN (00:23)
[2023-04-21] MEDS ORDERED: Calcium Carbonate 500 MG ChewTAB PO PRN (00:23)
[2023-04-21] MEDS ORDERED: Acetaminophen 650 MG Suppository PR PRN (00:23)
[2023-04-21] MEDS ORDERED: Furosemide 40 MG (4 mL) VIAL SLOW IVP SCH ×2 (03:30→09:00)
[2023-04-21] MEDS ORDERED: Furosemide 40 MG (4 mL) VIAL ONE (03:32)
[2023-04-21] MEDS ORDERED: HumaLOG 300 UNITS/3 ML VIAL ONE (08:34)
[2023-04-21] MEDS: HumaLOG 300 UNITS/3 ML VIAL SC PRN ×2 (08:43→18:07)
[2023-04-21 08:54] LABS: #Eosinphils 0.1 thou/uL (0.0-0.7); #Monocytes 0.3 thou/uL (0.11-0.59); #Neutrophils 4.8 thou/uL (1.40-6.50); %Basophils 0.4 % (0.0-1.0); %Eosinophils 1.3 % (0.0-10.0); %Lymphocytes 34.2 % (21.0-51.0); %Monocytes 3.8 % (0.0-10.0); %Neutrophils 60.2 % (42.0-75.0); Hematocrit 46.4 % (42.0-52.0); Hemoglobin 14.8 g/dL (14.0-18.0); Mean Corpuscular HGB CONC 31.9 g/dL (32.0-36.0); Mean Corpuscular Hemoglobin 26.7 pg (27.0-31.0); Mean Corpuscular Volume 83.8 fl (78.0-98.0); Mean Platelet Volume 10.7 fL (7.4-10.4); Platelet Count 258 10x3/uL (130-400); RBC Distribution Width 14.4 % (11.5-14.5); Red Blood Cell (RBC) Count 5.54 mill/uL (4.70-6.10); White Blood Cell (WBC) Count 7.9 10x3/uL (4.8-10.8)
[2023-04-21] MEDS ORDERED: Enoxaparin 40 MG (0.4 mL) SYRINGE SC SCH (09:00)
[2023-04-21 09:02] LABS: Hemoglobin A1c 10.4 % (4.0-6.0)
[2023-04-21 09:18] LABS: ALT (SGPT) 74 U/L (8-55); AST (SGOT) 34 U/L (5-34); Albumin 3.6 g/dL (3.5-5.0); Alkaline Phosphatase 120 U/L (40-110); Anion Gap 12 mmol/L (10-20); BUN (Urea Nitrogen) 22 mg/dL (8.9-20.6); Bilirubin, Total 1.3 mg/dL (0.2-1.2); Calc. Creatinine Clearance 79 mL/min (70-130); Calcium 8.6 mg/dL (7.8-10.44); Carbon Dioxide 26 mmol/L (22-29); Chloride 102 mmol/L (98-107); Estimated GFR 60; Globulin 2.3 g/dL (2.4-3.5); Glucose 172 mg/dL (70-105); Potassium 3.8 mmol/L (3.5-5.1); Protein, Total 5.9 g/dL (6.0-8.3); Sodium 136 mmol/L (136-145)
[2023-04-21] MEDS: Potassium Bicarbonate/Cit Ac 20 MEQ TAB PO SCH ×2 (09:38→17:05)
[2023-04-21] MEDS: Ivabradine 5 MG TAB PO SCH ×2 (09:38→17:05)
[2023-04-21] MEDS: Digoxin 0.125 MG TAB PO SCH (09:38)
[2023-04-21] MEDS: glipiZIDE 10 MG TAB PO SCH ×2 (09:38→17:05)
[2023-04-21] MEDS: Sacubitril 24MG/Valsartan 26 MG TAB PO SCH ×2 (09:39→20:00)
[2023-04-21] MEDS: Rosuvastatin 20 MG TAB PO SCH (09:56)
[2023-04-22 04:37] LABS: #Eosinphils 0.2 thou/uL (0.0-0.7); #Monocytes 0.3 thou/uL (0.11-0.59); #Neutrophils 4.6 thou/uL (1.40-6.50); %Basophils 0.5 % (0.0-1.0); %Eosinophils 2.4 % (0.0-10.0); %Lymphocytes 31.4 % (21.0-51.0); %Monocytes 4.5 % (0.0-10.0); %Neutrophils 60.9 % (42.0-75.0); Hemoglobin 14.1 g/dL (14.0-18.0); Mean Corpuscular Volume 84.3 fl (78.0-98.0); Mean Platelet Volume 10.9 fL (7.4-10.4); Platelet Count 271 10x3/uL (130-400); RBC Distribution Width 14.4 % (11.5-14.5); Red Blood Cell (RBC) Count 5.22 mill/uL (4.70-6.10); White Blood Cell (WBC) Count 7.6 10x3/uL (4.8-10.8)
[2023-04-22 05:04] LABS: ALT (SGPT) 58 U/L (8-55); AST (SGOT) 24 U/L (5-34); Albumin 3.5 g/dL (3.5-5.0); Alkaline Phosphatase 200 U/L (40-110); Anion Gap 12 mmol/L (10-20); BUN (Urea Nitrogen) 24 mg/dL (8.9-20.6); Bilirubin, Total 0.8 mg/dL (0.2-1.2); Calc. Creatinine Clearance 78 mL/min (70-130); Calcium 8.5 mg/dL (7.8-10.44); Carbon Dioxide 26 mmol/L (22-29); Chloride 102 mmol/L (98-107); Estimated GFR 59; Globulin 2.5 g/dL (2.4-3.5); Glucose 213 mg/dL (70-105); Potassium 3.6 mmol/L (3.5-5.1); Sodium 136 mmol/L (136-145)
[2023-04-22] MEDS: HumaLOG 300 UNITS/3 ML VIAL SC PRN ×2 (05:34→12:51)
[2023-04-22] MEDS: glipiZIDE 10 MG TAB PO SCH ×2 (08:05→15:27)
[2023-04-22] MEDS: Sacubitril 24MG/Valsartan 26 MG TAB PO SCH ×2 (08:05→20:11)
[2023-04-22] MEDS: Potassium Bicarbonate/Cit Ac 20 MEQ TAB PO SCH ×2 (08:05→17:34)
[2023-04-22] MEDS ORDERED: Furosemide 40 MG (4 mL) VIAL SLOW IVP SCH (08:30)
[2023-04-22] MEDS: Ivabradine 5 MG TAB PO SCH ×2 (12:10→17:34)
[2023-04-22] MEDS: Digoxin 0.125 MG TAB PO SCH (12:10)
[2023-04-22] MEDS: Rosuvastatin 20 MG TAB PO SCH (12:11)
[2023-04-22] MEDS ORDERED: Furosemide 20 MG (2 mL) VIAL SLOW IVP SCH ×2 (14:45→20:45)
[2023-04-23] MEDS: HumaLOG 300 UNITS/3 ML VIAL SC PRN ×3 (06:08→18:23)
[2023-04-23 06:59] LABS: #Eosinphils 0.1 thou/uL (0.0-0.7); #Monocytes 0.3 thou/uL (0.11-0.59); #Neutrophils 4.5 thou/uL (1.40-6.50); %Basophils 0.5 % (0.0-1.0); %Eosinophils 1.8 % (0.0-10.0); %Lymphocytes 32.3 % (21.0-51.0); %Monocytes 3.8 % (0.0-10.0); %Neutrophils 61.3 % (42.0-75.0); Hematocrit 48.4 % (42.0-52.0); Hemoglobin 15.3 g/dL (14.0-18.0); Mean Corpuscular HGB CONC 31.6 g/dL (32.0-36.0); Mean Corpuscular Hemoglobin 26.3 pg (27.0-31.0); Mean Corpuscular Volume 83.3 fl (78.0-98.0); Mean Platelet Volume 10.1 fL (7.4-10.4); Platelet Count 257 10x3/uL (130-400); RBC Distribution Width 14.3 % (11.5-14.5); Red Blood Cell (RBC) Count 5.81 mill/uL (4.70-6.10); White Blood Cell (WBC) Count 7.4 10x3/uL (4.8-10.8)
[2023-04-23 07:16] LABS: ALT (SGPT) 46 U/L (8-55); AST (SGOT) 19 U/L (5-34); Albumin 3.6 g/dL (3.5-5.0); Alkaline Phosphatase 175 U/L (40-110); Anion Gap 10 mmol/L (10-20); BUN (Urea Nitrogen) 24 mg/dL (8.9-20.6); Bilirubin, Total 0.7 mg/dL (0.2-1.2); Calc. Creatinine Clearance 87 mL/min (70-130); Calcium 8.3 mg/dL (7.8-10.44); Carbon Dioxide 25 mmol/L (22-29); Chloride 104 mmol/L (98-107); Estimated GFR 68; Globulin 2.5 g/dL (2.4-3.5); Glucose 239 mg/dL (70-105); Potassium 3.8 mmol/L (3.5-5.1); Protein, Total 6.1 g/dL (6.0-8.3); Sodium 135 mmol/L (136-145)
[2023-04-23] MEDS: Ivabradine 5 MG TAB PO SCH ×2 (08:11→17:15)
[2023-04-23] MEDS: Rosuvastatin 20 MG TAB PO SCH (08:11)
[2023-04-23] MEDS: Digoxin 0.125 MG TAB PO SCH (08:11)
[2023-04-23] MEDS: Potassium Bicarbonate/Cit Ac 20 MEQ TAB PO SCH ×2 (08:11→17:15)
[2023-04-23] MEDS: Sacubitril 24MG/Valsartan 26 MG TAB PO SCH ×2 (08:11→21:33)
[2023-04-23] MEDS: glipiZIDE 10 MG TAB PO SCH ×2 (08:12→17:15)
[2023-04-23] MEDS ORDERED: Furosemide 20 MG (2 mL) VIAL SLOW IVP SCH (08:30)
[2023-04-24 04:31] LABS: #Eosinphils 0.1 thou/uL (0.0-0.7); #Monocytes 0.4 thou/uL (0.11-0.59); %Basophils 0.3 % (0.0-1.0); %Eosinophils 1.3 % (0.0-10.0); %Lymphocytes 28.7 % (21.0-51.0); %Monocytes 4.8 % (0.0-10.0); %Neutrophils 64.8 % (42.0-75.0); Hematocrit 45.6 % (42.0-52.0); Hemoglobin 14.5 g/dL (14.0-18.0); Mean Corpuscular HGB CONC 31.8 g/dL (32.0-36.0); Mean Corpuscular Hemoglobin 27.1 pg (27.0-31.0); Mean Corpuscular Volume 85.2 fl (78.0-98.0); Mean Platelet Volume 10.5 fL (7.4-10.4); Platelet Count 243 10x3/uL (130-400); RBC Distribution Width 14.5 % (11.5-14.5); Red Blood Cell (RBC) Count 5.35 mill/uL (4.70-6.10); White Blood Cell (WBC) Count 7.7 10x3/uL (4.8-10.8)
[2023-04-24 04:58] LABS: ALT (SGPT) 39 U/L (8-55); AST (SGOT) 23 U/L (5-34); Albumin 3.4 g/dL (3.5-5.0); Alkaline Phosphatase 185 U/L (40-110); Anion Gap 14 mmol/L (10-20); BUN (Urea Nitrogen) 22 mg/dL (8.9-20.6); Bilirubin, Total 0.6 mg/dL (0.2-1.2); Calc. Creatinine Clearance 76 mL/min (70-130); Calcium 8.3 mg/dL (7.8-10.44); Carbon Dioxide 22 mmol/L (22-29); Chloride 109 mmol/L (98-107); Estimated GFR 59; Globulin 2.7 g/dL (2.4-3.5); Glucose 137 mg/dL (70-105); Potassium 4.4 mmol/L (3.5-5.1); Protein, Total 6.1 g/dL (6.0-8.3); Sodium 141 mmol/L (136-145)
[2023-04-24] MEDS: Potassium Bicarbonate/Cit Ac 20 MEQ TAB PO SCH ×2 (08:10→17:46)
[2023-04-24] MEDS: glipiZIDE 10 MG TAB PO SCH ×2 (08:11→17:47)
[2023-04-24] MEDS: Ivabradine 5 MG TAB PO SCH ×2 (08:11→17:47)
[2023-04-24] MEDS: Digoxin 0.125 MG TAB PO SCH (08:11)
[2023-04-24] MEDS: Rosuvastatin 20 MG TAB PO SCH (08:11)
[2023-04-24] MEDS: Sacubitril 24MG/Valsartan 26 MG TAB PO SCH ×2 (08:11→21:20)
[2023-04-24] MEDS ORDERED: Torsemide 10 MG TAB PO SCH (09:00)
[2023-04-24] MEDS: HumaLOG 300 UNITS/3 ML VIAL SC PRN ×2 (12:03→17:47)
[2023-04-24] MEDS ORDERED: Empagliflozin 10 MG TAB PO SCH (18:00)
[2023-04-25] MEDS: Furosemide 40 MG (4 mL) VIAL SLOW IVP SCH ×3 (06:28→14:09)
[2023-04-25 06:31] LABS: ALT (SGPT) 36 U/L (8-55); AST (SGOT) 21 U/L (5-34); Albumin 3.4 g/dL (3.5-5.0); Alkaline Phosphatase 148 U/L (40-110); Anion Gap 11 mmol/L (10-20); BUN (Urea Nitrogen) 27 mg/dL (8.9-20.6); Bilirubin, Total 0.6 mg/dL (0.2-1.2); Calc. Creatinine Clearance 81 mL/min (70-130); Calcium 8.3 mg/dL (7.8-10.44); Carbon Dioxide 21 mmol/L (22-29); Chloride 111 mmol/L (98-107); Estimated GFR 63; Globulin 2.2 g/dL (2.4-3.5); Glucose 160 mg/dL (70-105); Potassium 4.4 mmol/L (3.5-5.1); Protein, Total 5.6 g/dL (6.0-8.3); Sodium 139 mmol/L (136-145)
[2023-04-25] MEDS ORDERED: Empagliflozin 10 MG TAB PO SCH (08:00)
[2023-04-25] MEDS: Ivabradine 5 MG TAB PO SCH ×2 (10:33→16:07)
[2023-04-25] MEDS: glipiZIDE 10 MG TAB PO SCH ×2 (10:33→16:07)
[2023-04-25] MEDS: Digoxin 0.125 MG TAB PO SCH (10:34)
[2023-04-25] MEDS: Sacubitril 24MG/Valsartan 26 MG TAB PO SCH ×2 (10:34→19:43)
[2023-04-25] MEDS: Rosuvastatin 20 MG TAB PO SCH (10:35)
[2023-04-25] MEDS: Potassium Bicarbonate/Cit Ac 20 MEQ TAB PO SCH ×2 (10:38→16:07)
[2023-04-25] MEDS: Diclofenac 1% 50 GM TOPICAL GEL TP SCH ×4 (11:05→19:44)
[2023-04-26] MEDS: Furosemide 40 MG (4 mL) VIAL SLOW IVP SCH ×2 (05:33→14:15)
[2023-04-26 05:44] LABS: ALT (SGPT) 32 U/L (8-55); AST (SGOT) 18 U/L (5-34); Albumin 3.5 g/dL (3.5-5.0); Alkaline Phosphatase 147 U/L (40-110); Anion Gap 14 mmol/L (10-20); BUN (Urea Nitrogen) 31 mg/dL (8.9-20.6); Bilirubin, Total 0.8 mg/dL (0.2-1.2); Calc. Creatinine Clearance 70 mL/min (70-130); Calcium 8.8 mg/dL (7.8-10.44); Carbon Dioxide 26 mmol/L (22-29); Chloride 106 mmol/L (98-107); Estimated GFR 53; Globulin 2.8 g/dL (2.4-3.5); Glucose 154 mg/dL (70-105); Potassium 4.3 mmol/L (3.5-5.1); Protein, Total 6.3 g/dL (6.0-8.3); Sodium 142 mmol/L (136-145)
[2023-04-26] MEDS: Potassium Bicarbonate/Cit Ac 20 MEQ TAB PO SCH ×2 (08:23→17:17)
[2023-04-26] MEDS: Rosuvastatin 20 MG TAB PO SCH (08:23)
[2023-04-26] MEDS: Digoxin 0.125 MG TAB PO SCH (08:23)
[2023-04-26] MEDS: Ivabradine 5 MG TAB PO SCH ×2 (08:23→17:17)
[2023-04-26] MEDS: Sacubitril 24MG/Valsartan 26 MG TAB PO SCH ×2 (08:23→20:05)
[2023-04-26] MEDS: glipiZIDE 10 MG TAB PO SCH ×2 (08:23→17:17)
[2023-04-26] MEDS: HumaLOG 300 UNITS/3 ML VIAL SC PRN ×2 (08:27→17:21)
[2023-04-26] MEDS: Diclofenac 1% 50 GM TOPICAL GEL TP SCH ×4 (08:32→20:05)
[2023-04-26] MEDS ORDERED: Torsemide 10 MG TAB PO SCH (09:00)
[2023-04-26] MEDS ORDERED: DOBUTamine 500 mg/250 ml 250 ML IVPB SCH (09:30)
[2023-04-26] MEDS ORDERED: Furosemide 40 MG (4 mL) VIAL SLOW IVP SCH (09:30)
[2023-04-26] MEDS: DOBUTamine 500 mg/250 ml 250 ML IVPB SCH (11:41)
[2023-04-26] MEDS: Eplerenone [Eplerenone] 25 MG Tablet PO SCH (23:09)
[2023-04-27] MEDS: Eplerenone [Eplerenone] 25 MG Tablet PO SCH ×3 (01:35→09:33)
[2023-04-27] MEDS: DOBUTamine 500 mg/250 ml 250 ML IVPB SCH (05:34)
[2023-04-27] MEDS: Furosemide 40 MG (4 mL) VIAL SLOW IVP SCH (05:34)
[2023-04-27 06:30] LABS: ALT (SGPT) 26 U/L (8-55); AST (SGOT) 13 U/L (5-34); Albumin 3.5 g/dL (3.5-5.0); Alkaline Phosphatase 155 U/L (40-110); Anion Gap 12 mmol/L (10-20); BUN (Urea Nitrogen) 23 mg/dL (8.9-20.6); Bilirubin, Total 1.1 mg/dL (0.2-1.2); Calc. Creatinine Clearance 87 mL/min (70-130); Calcium 8.3 mg/dL (7.8-10.44); Carbon Dioxide 25 mmol/L (22-29); Chloride 105 mmol/L (98-107); Estimated GFR 68; Globulin 2.4 g/dL (2.4-3.5); Glucose 186 mg/dL (70-105); Potassium 3.6 mmol/L (3.5-5.1); Protein, Total 5.9 g/dL (6.0-8.3); Sodium 138 mmol/L (136-145)
[2023-04-27] MEDS: Ivabradine 5 MG TAB PO SCH ×2 (07:44→18:43)
[2023-04-27] MEDS: glipiZIDE 10 MG TAB PO SCH ×2 (07:44→18:42)
[2023-04-27] MEDS: Potassium Bicarbonate/Cit Ac 20 MEQ TAB PO SCH ×2 (07:44→18:42)
[2023-04-27] MEDS ORDERED: Insulin Glargine 30 UNITS/0.3 ML VIAL SC SCH (09:00)
[2023-04-27] MEDS: Sacubitril 24MG/Valsartan 26 MG TAB PO SCH ×2 (09:34→19:41)
[2023-04-27] MEDS: Digoxin 0.125 MG TAB PO SCH (09:35)
[2023-04-27] MEDS: Rosuvastatin 20 MG TAB PO SCH (09:35)
[2023-04-27] MEDS: HumaLOG 300 UNITS/3 ML VIAL SC PRN ×3 (09:39→18:49)
[2023-04-27] MEDS: Diclofenac 1% 50 GM TOPICAL GEL TP SCH ×4 (10:07→19:41)
[2023-04-27] MEDS ORDERED: Spironolactone 25 MG TAB PO SCH (10:15)
[2023-04-27] MEDS ORDERED: Furosemide 20 MG (2 mL) VIAL SLOW IVP SCH (14:00)
[2023-04-28 04:58] LABS: ALT (SGPT) 56 U/L (8-55); AST (SGOT) 69 U/L (5-34); Albumin 3.5 g/dL (3.5-5.0); Alkaline Phosphatase 184 U/L (40-110); Anion Gap 13 mmol/L (10-20); BUN (Urea Nitrogen) 18 mg/dL (8.9-20.6); Bilirubin, Total 1.1 mg/dL (0.2-1.2); Calc. Creatinine Clearance 76 mL/min (70-130); Calcium 8.4 mg/dL (7.8-10.44); Carbon Dioxide 24 mmol/L (22-29); Chloride 104 mmol/L (98-107); Estimated GFR 58; Globulin 2.6 g/dL (2.4-3.5); Glucose 242 mg/dL (70-105); Potassium 3.8 mmol/L (3.5-5.1); Protein, Total 6.1 g/dL (6.0-8.3); Sodium 137 mmol/L (136-145)
[2023-04-28] MEDS: DOBUTamine 500 mg/250 ml 250 ML IVPB SCH (06:07)
[2023-04-28] MEDS: Furosemide 40 MG (4 mL) VIAL SLOW IVP SCH ×3 (06:08→14:08)
[2023-04-28] MEDS: Potassium Bicarbonate/Cit Ac 20 MEQ TAB PO SCH ×2 (07:49→17:29)
[2023-04-28] MEDS: glipiZIDE 10 MG TAB PO SCH ×2 (07:49→17:29)
[2023-04-28] MEDS: Ivabradine 5 MG TAB PO SCH ×2 (07:49→17:29)
[2023-04-28] MEDS ORDERED: Spironolactone 25 MG TAB PO SCH (08:00)
[2023-04-28] MEDS ORDERED: Insulin Glargine 30 UNITS/0.3 ML VIAL SC SCH (09:00)
[2023-04-28] MEDS: Digoxin 0.125 MG TAB PO SCH (09:17)
[2023-04-28] MEDS: Sacubitril 24MG/Valsartan 26 MG TAB PO SCH ×2 (09:17→20:50)
[2023-04-28] MEDS: Rosuvastatin 20 MG TAB PO SCH (09:17)
[2023-04-28] MEDS: Eplerenone [Eplerenone] 25 MG Tablet PO SCH (09:19)
[2023-04-28] MEDS: Diclofenac 1% 50 GM TOPICAL GEL TP SCH ×4 (09:25→20:50)
[2023-04-29] MEDS: DOBUTamine 500 mg/250 ml 250 ML IVPB SCH (02:22)
[2023-04-29] MEDS: Furosemide 40 MG (4 mL) VIAL SLOW IVP SCH (06:16)
[2023-04-29] MEDS: Rosuvastatin 20 MG TAB PO SCH (08:00)
[2023-04-29] MEDS: Digoxin 0.125 MG TAB PO SCH (08:00)
[2023-04-29] MEDS: Ivabradine 5 MG TAB PO SCH ×2 (08:00→17:57)
[2023-04-29] MEDS: glipiZIDE 10 MG TAB PO SCH ×2 (08:01→17:57)
[2023-04-29] MEDS: Sacubitril 24MG/Valsartan 26 MG TAB PO SCH ×2 (08:01→21:20)
[2023-04-29] MEDS: Potassium Bicarbonate/Cit Ac 20 MEQ TAB PO SCH ×2 (08:01→17:56)
[2023-04-29] MEDS: Torsemide 10 MG TAB PO SCH ×2 (08:01→13:47)
[2023-04-29] MEDS: Diclofenac 1% 50 GM TOPICAL GEL TP SCH ×4 (08:02→21:20)
[2023-04-29] MEDS: Eplerenone [Eplerenone] 25 MG Tablet PO SCH (08:02)
[2023-04-29 13:59] LABS: ALT (SGPT) 86 U/L (8-55); AST (SGOT) 50 U/L (5-34); Albumin 3.9 g/dL (3.5-5.0); Alkaline Phosphatase 189 U/L (40-110); Anion Gap 17 mmol/L (10-20); BUN (Urea Nitrogen) 16 mg/dL (8.9-20.6); Bilirubin, Total 1.5 mg/dL (0.2-1.2); Calc. Creatinine Clearance 84 mL/min (70-130); Calcium 8.9 mg/dL (7.8-10.44); Carbon Dioxide 22 mmol/L (22-29); Chloride 102 mmol/L (98-107); Estimated GFR 71; Globulin 3.2 g/dL (2.4-3.5); Glucose 176 mg/dL (70-105); Potassium 4.5 mmol/L (3.5-5.1); Protein, Total 7.1 g/dL (6.0-8.3); Sodium 136 mmol/L (136-145)
[2023-04-30 05:01] LABS: ALT (SGPT) 65 U/L (8-55); AST (SGOT) 32 U/L (5-34); Albumin 3.5 g/dL (3.5-5.0); Alkaline Phosphatase 174 U/L (40-110); Anion Gap 14 mmol/L (10-20); BUN (Urea Nitrogen) 23 mg/dL (8.9-20.6); Bilirubin, Total 1.1 mg/dL (0.2-1.2); Calc. Creatinine Clearance 78 mL/min (70-130); Calcium 8.7 mg/dL (7.8-10.44); Carbon Dioxide 21 mmol/L (22-29); Chloride 102 mmol/L (98-107); Estimated GFR 65; Globulin 2.9 g/dL (2.4-3.5); Glucose 218 mg/dL (70-105); Potassium 4.4 mmol/L (3.5-5.1); Protein, Total 6.4 g/dL (6.0-8.3); Sodium 133 mmol/L (136-145)
[2023-04-30] MEDS: Eplerenone [Eplerenone] 25 MG Tablet PO SCH (08:35)
[2023-04-30] MEDS: Ivabradine 5 MG TAB PO SCH ×2 (08:37→17:05)
[2023-04-30] MEDS: Torsemide 10 MG TAB PO SCH ×2 (08:37→14:48)
[2023-04-30] MEDS: glipiZIDE 10 MG TAB PO SCH ×2 (08:38→17:05)
[2023-04-30] MEDS: Digoxin 0.125 MG TAB PO SCH (08:38)
[2023-04-30] MEDS: Potassium Bicarbonate/Cit Ac 20 MEQ TAB PO SCH ×2 (08:38→17:05)
[2023-04-30] MEDS: Sacubitril 24MG/Valsartan 26 MG TAB PO SCH ×2 (08:38→21:02)
[2023-04-30] MEDS: Rosuvastatin 20 MG TAB PO SCH (08:39)
[2023-04-30] MEDS: Diclofenac 1% 50 GM TOPICAL GEL TP SCH ×4 (08:39→21:02)
[2023-05-01 05:25] LABS: ALT (SGPT) 58 U/L (8-55); AST (SGOT) 27 U/L (5-34); Albumin 3.8 g/dL (3.5-5.0); Alkaline Phosphatase 214 U/L (40-110); Anion Gap 12 mmol/L (10-20); BUN (Urea Nitrogen) 26 mg/dL (8.9-20.6); Bilirubin, Total 0.9 mg/dL (0.2-1.2); Calc. Creatinine Clearance 84 mL/min (70-130); Calcium 9.2 mg/dL (7.8-10.44); Carbon Dioxide 22 mmol/L (22-29); Chloride 102 mmol/L (98-107); Estimated GFR 72; Glucose 223 mg/dL (70-105); Potassium 4.9 mmol/L (3.5-5.1); Protein, Total 6.8 g/dL (6.0-8.3); Sodium 131 mmol/L (136-145)
[2023-05-01] MEDS: Torsemide 10 MG TAB PO SCH (10:56)
[2023-05-01] MEDS: Sacubitril 24MG/Valsartan 26 MG TAB PO SCH (10:58)
[2023-05-01] MEDS: Rosuvastatin 20 MG TAB PO SCH (10:59)
[2023-05-01] MEDS: Ivabradine 5 MG TAB PO SCH (10:59)
[2023-05-01] MEDS: Digoxin 0.125 MG TAB PO SCH (11:00)
[2023-05-01] MEDS: glipiZIDE 10 MG TAB PO SCH (11:00)
[2023-05-01] MEDS: Potassium Bicarbonate/Cit Ac 20 MEQ TAB PO SCH (11:00)
[2023-05-01] MEDS: Eplerenone [Eplerenone] 25 MG Tablet PO SCH (11:02)
[2023-05-01] MEDS: Diclofenac 1% 50 GM TOPICAL GEL TP SCH (11:02)
[2023-05-01 11:42] VITALS: BP 108/55; TEMP 98.3
[2023-05-01 11:56] VITALS: BMI 23.8
[2023-05-01] MEDS ORDERED: Furosemide 40 MG (4 mL) VIAL SLOW IVP SCH (12:45)
== END 2023-05-01 15:47 | disposition home or self-care (01) | DRG 291 ==
LOC: ERS 18:57 → ERHOLD 22:40 → INTOOBSV 22:40 → 2SW 04-21 11:53 → OBSVTOIN 04-22 14:45
PROVIDERS: ADMIT Student in an Organized Health Care Education/Training Program; ATTEND Student in an Organized Health Care Education/Training Program
DX: I13.0 Hypertensive heart and chronic kidney disease with heart failure and stage 1 through stage 4 chronic kidney disease, or unspecified chronic kidney disease (principal); I50.23 Acute on chronic systolic (congestive) heart failure; N17.9 Acute kidney failure, unspecified; E87.1 Hypo-osmolality and hyponatremia; I42.0 Dilated cardiomyopathy; R74.01 Elevation of levels of liver transaminase levels; E78.5 Hyperlipidemia, unspecified; Z88.8 Allergy status to other drugs, medicaments and biological substances; Z79.899 Other long term (current) drug therapy; Z82.49 Family history of ischemic heart disease and other diseases of the circulatory system; Z83.3 Family history of diabetes mellitus; Z98.890 Other specified postprocedural states; E11.65 Type 2 diabetes mellitus with hyperglycemia; N18.2 Chronic kidney disease, stage 2 (mild); E11.22 Type 2 diabetes mellitus with diabetic chronic kidney disease; Z79.4 Long term (current) use of insulin; Z95.810 Presence of automatic (implantable) cardiac defibrillator
CPT/HCPCS: 36415; 36416; 71045; 71046; 80053; 83036; 83880; 84484; 85025; 93005; 93798; 96374; 96376; 97139; G0378; J1250; J1815; J1940